=== PATIENT | female | born 1985 | race Caucasian/White ===

== ENCOUNTER 2017-11-03 09:09 | Emergency (ER) | payer OTHER ==
[2017-11-03 09:18] VITALS: BMI 29.8
--- NOTE | 2017-11-03 09:48 | PDOC ---
Attending Attestation - Resident Resident Name: JessicaAldo - ED Attending Attestation I have performed the following: I have examined & evaluated the patient, The case was reviewed & discussed with the resident, I agree w/resident's findings & plan, Exceptions are as noted - HPI HPI: 11/03/17 09:46 32y F presents with n/v for the past 2 days, nbnb. unable to tolerate anything by mouth. denies f/c, diarrhea, urinary sypmtoms. pt with history of iud placement. +upper abdominal pain only in hte process of vomiting. no radaition to flank, back, lower abd no abd pain currently no recent travel, fever/chills pain not associated with food on exam she is well appearing in no distress abd is soft nontender - Physicial Exam PE: 11/03/17 12:03 see above - Medical Decision Making 11/03/17 12:02 pt feeling improved labs reviewed and is neg pt able to tolerate oral intake will dc with zofran return precautions were discussed pmd fu, and GI fu if not better Return precautions were discussed I discussed the physical exam findings, ancillary test results and final diagnoses with the patient. I answered all of the patient's questions. The patient was satisfied with the care received and felt comfortable with the discharge plan and treatment plan. The patient will call their primary care physician within 24 hours to arrange follow-up and will return to the Emergency Department with any new, persistent or worsening symptoms.
[2017-11-03] MEDS ORDERED: ONDANSETRON 4 MG/2 ML VIAL IVPUSH ONE (09:52)
--- NOTE | 2017-11-03 09:52 | PDOC ---
History of Present Illness - General Chief Complaint: Pain Stated Complaint: ABD PAIN, NAUSEA Time Seen by Provider: 11/03/17 09:21 - History of Present Illness Initial Comments: 11/03/17 09:39 Pt is a 32 y/o who presents to ED with nausea and vomiting since Sun. Pt states she has not been able to keep anything down; each time she eats or drinks she becomes nauseous and vomits. She vomited 4 times Sun and 3 times yest. Vomiting is nonbloody, nonbilious and is associated with upper abdominal pain only present while vomiting. Pt denies headache, fever, chills, cp, sob, urinary frequency/urgency, diarrhea, travel, unusual food consumption. Pt has IUD placed 2 years ago. Past History - Past Medical History Allergies/Adverse Reactions: Allergies Allergy/AdvReac Type Severity Reaction Status Date / Time aspirin Allergy Intermediate Swelling Verified 11/03/17 09:18 Home Medications: Ambulatory Orders NK [No Known Home Medication] 11/03/17 Anemia: Yes Asthma: No Cancer: No Cardiac Disorders: No COPD: No Diabetes: No HTN: No Seizures: No Thyroid Disease: No - Surgical History Abdominal Surgery: No - Reproductive History (#): 3 Para: 3 Spontaneous : 0 - Immunization History Immunization Up to Date: Yes - Suicide/Smoking/Psychosocial Hx Smoking Status: No Smoking History: Never smoked Number of Cigarettes Smoked Daily: 0 Information on smoking cessation initiated: No Hx Alcohol Use: No Drug/Substance Use Hx: No Substance Use Type: None Hx Substance Use Treatment: No Review of Systems - Review of Systems Able to Perform ROS?: Yes Is the patient limited Gabonese proficient: No Constitutional: Yes: Symptoms Reported. No: Chills, Diaphoresis, Fever HEENTM: Yes: Symptoms Reported. No: Tearing, Ear Pain, Ear Discharge, Nose Pain , Hearing Loss, Throat Pain, Throat Swelling, Difficulty Swallowing Respiratory: Yes: Symptoms reported. No: Cough, Shortness of Breath, Stridor, Wheezing Cardiac (ROS): Yes: Symptoms Reported. No: Chest Pain, Palpitations, Chest Tightness ABD/GI: Yes: Symptoms Reported, Nausea, Vomiting, Abdominal cramping (upper abdominal pain only while vomiting). No: Diarrhea, Poor Appetite : Yes: Symptoms Reported. No: Burning, Dysuria, Discharge Neurological: Yes: Symptoms reported. No: Headache, Paresthesia, Tingling *Physical Exam - Vital Signs Last Vital Signs Temp Pulse Resp BP Pulse Ox 98.5 F 71 18 110/66 100 11/03/17 09:15 11/03/17 09:15 11/03/17 09:15 11/03/17 09:15 11/03/17 09:15 - Physical Exam General Appearance: Yes: Nourished, Appropriately Dressed, Apparent Distress HEENT: positive: EOMI, WARREN, Normal ENT Inspection (symmetrical palatal elevation). negative: Nasal Congestion, Rhinorrhea Neck: positive: Supple. negative: Tender Respiratory/Chest: positive: Lungs Clear, Normal Breath Sounds. negative: Chest Tender, Respiratory Distress, Accessory Muscle Use Cardiovascular: positive: Regular Rhythm, Regular Rate, S1, S2 Vascular Pulses: Dorsalis-Pedis (R): 2+, Doralis-Pedis (L): 2+ Gastrointestinal/Abdominal: positive: Normal Bowel Sounds, Flat, Soft. negative : Tender Musculoskeletal: negative: CVA Tenderness Extremity: positive: Normal Inspection. negative: Tender, Pedal Edema, Swelling , Calf Tenderness ED Treatment Course - LABORATORY CBC & Chemistry Diagram: 11/03/17 10:10 11/03/17 10:10 Medical Decision Making - Medical Decision Making 11/03/17 10:20 Pt is a 32F who presents to ED with nausea and vomiting for 2 days. unlikely as pt has IUD. Plan -cbc -chem -UA -U preg -lipase -zofran 11/03/17 10:46 Labs unremarkable U hcg neg 11/03/17 11:52 Pt stable for D/C *DC/Admit/Observation/Transfer Diagnosis at time of Disposition: Gastroenteritis - Discharge Dispostion Disposition: HOME Condition at time of disposition: Stable Admit: No - Referrals - Patient Instructions Printed Discharge Instructions: DI for Nausea -- Adult Additional Instructions: Please take all of your prescription medications as directed. Please follow up with your primary care doctor within 1 week. If you develop new symptoms or if your symptoms get worse, please return to the emergency department. - Post Discharge Activity
[2017-11-03] MEDS ORDERED: ONDANSETRON 4 MG/2 ML VIAL ONE (10:17)
[2017-11-03 10:41] LABS: BASO % 0.7 % (0-2.0); EOS % 5.2 % (0-4.5); HEMOGLOBIN 13.9 GM/dL (10.7-15.3); LYMPH % 39.3 % (8-40); MCH 28.5 pg (25.7-33.7); MCHC 32.3 g/dl (32.0-36.0); MEAN CELL VOLUME 88.3 fl (80-96); MEAN PLT VOLUME 9.7 fl (7.5-11.1); MONO % 7.9 % (3.8-10.2); NEUT % 46.9 % (42.8-82.8); PLATELET COUNT 245 K/MM3 (134-434); RBC 4.87 M/mm3 (3.60-5.2); RDW 15.2 % (11.6-15.6); WHITE BLOOD COUNT 7.3 K/mm3 (4.0-10.0)
[2017-11-03 10:51] LABS: ALBUMIN 3.6 g/dl (3.4-5.0); ALK PHOS 106 U/L (45-117); ANION GAP 4 (8-16); BILIRUBIN,TOTAL 0.5 mg/dL (0.2-1.0); BLOOD UREA NITROGEN 14 mg/dL (7-18); CALCIUM 8.5 mg/dL (8.5-10.1); CHLORIDE 105 mmol/L (98-107); CO2 28 mmol/L (21-32); CREATININE 0.6 mg/dL (0.55-1.02); GLUCOSE,RANDOM 85 mg/dL (74-106); SGPT/ALT 18 U/L (12-78); SODIUM 137 mmol/L (136-145); TOT PROT 8.1 g/dl (6.4-8.2)
[2017-11-03 10:53] LABS: SGOT/AST 20 U/L (15-37)
[2017-11-03 12:14] VITALS: BP 128/71; PULSE 78; TEMP 98.4
== END 2017-11-03 12:13 | disposition home or self-care (01) ==
LOC: JER 09:09
PROC: 3E033GC Introduction of Other Therapeutic Substance into Peripheral Vein, Percutaneous Approach (ICD-10-PCS; principal; 2017-11-03)
DX: K52.9 Noninfective gastroenteritis and colitis, unspecified (principal)
CPT/HCPCS: 36415; 80053; 83690; 84703; 85025; 96374; 99283-25

== ENCOUNTER 2018-05-30 12:25 | Emergency (ER) | payer OTHER ==
[2018-05-30 12:32] VITALS: BP 128/71; PULSE 87; TEMP 98.7; BMI 28.2
--- NOTE | 2018-05-30 13:14 | PDOC ---
History of Present Illness - General Chief Complaint: Pain Stated Complaint: Vomiting/ABD PAIN Time Seen by Provider: 05/30/18 12:59 - History of Present Illness Initial Comments: Kira Marquez is a 32yo woman with a history of frequent heartburn who presents with 4 days of nausea, vomiting, and epigastric pain. She states that she has been unable to keep any food down over the past several days, though she has been trying to stay hydrated and has been able to drink a normal amount of water. She does report that she has frequent heartburn and has had episodes of nausea previously for which she has been treated with zofran. She uses pepto bismol at home on occasion with some improvement in her symptoms. Ms Marquez reports that she has never seen a primary physician for heartburn or nausea previously. Over the past few days, Ms Marquez denies any fever, chills, chest pain, SOB, diarrhea or change in bowel habits, recent travel, or sick contacts. 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 She states that she presented to the ED today because she was told that she needed to be evaluated before returning to work. Past History - Past Medical History Allergies/Adverse Reactions: Allergies Allergy/AdvReac Type Severity Reaction Status Date / Time aspirin Allergy Intermediate Swelling Verified 05/30/18 12:32 Home Medications: Ambulatory Orders Famotidine 20 mg PO DAILY #14 tablet 05/30/18 Ondansetron [Zofran Odt -] 4 mg GT QID PRN #12 tab.rapdis 05/30/18 Anemia: Yes Asthma: No Cancer: No Cardiac Disorders: No COPD: No Diabetes: No HTN: No Seizures: No Thyroid Disease: No - Surgical History Abdominal Surgery: No - Reproductive History (#): 3 Para: 3 Spontaneous : 0 - Immunization History Immunization Up to Date: Yes - Suicide/Smoking/Psychosocial Hx Smoking Status: No Smoking History: Never smoked Number of Cigarettes Smoked Daily: 0 Hx Alcohol Use: No Drug/Substance Use Hx: No Substance Use Type: None Hx Substance Use Treatment: No Review of Systems - Review of Systems Comments:: General: No fevers, no chills, no weight or appetite change, no malaise HEENT: No changes in vision, no changes in hearing, no congestion, no sore throat CV: No chest pain, no palpitations, no LE edema Pulm: No SOB, no cough, no wheezing GI: See HPI. No change in bowel habits, no melena : No frequency, no urgency, no dysuria Musc: No back pain, no joint swelling, no recent injury Skin: No rash, no lesions, no erythema Endo: No excessive thirst, no heat/cold intolerance Heme: No unusual bruising or bleeding, no swollen glands Neuro: No syncope, no numbness/tingling, no focal weakness Vasc: No claudication Psych: No recent change in mood, no SI or HI *Physical Exam - Vital Signs Last Vital Signs Temp Pulse Resp BP Pulse Ox 98.7 F 87 18 128/71 99 05/30/18 12:30 05/30/18 12:30 05/30/18 12:30 05/30/18 12:30 05/30/18 12:30 - Physical Exam Comments: General: Comfortable, no acute distress HEENT: PERRL, EOMI, MMM, voice normal, normal neck ROM, no LAD Cards: RRR, no murmur appreciated Pulm: Comfortable on room air, clear to auscultation bilaterally Abd: Soft, nondistended. Mild epigastric discomfort with deep palpation but otherwise nontender. : No CVA tenderness Ext: Atraumatic. No LE edema. ROM intact. Strength 5/5 and equal bilaterally Vasc: Extremities WWP. Palpable radial and pedal pulses bilaterally Neuro: A&Ox3, CN grossly intact, normal speech, motor/sensory grossly intact and symmetric Psych: Mood appropriate to situation ED Treatment Course - LABORATORY CBC & Chemistry Diagram: 05/30/18 13:52 05/30/18 13:52 Medical Decision Making - Medical Decision Making 05/30/18 13:56 Kira Marquez is a 32yo woman with a history of heartburn who presents with 4 days of nausea, vomiting, and epigastric pain. - She reports undiagnosed frequent heartburn. 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 Most likely, her symptoms represent an infectious process - Given epigastric pain and nausea, will rule out ACS. EKG ordered. Low suspicion given patient's lack of comorbidities, and no chest pain, SOB, diaphoresis - r/o as a cause of nausea/vomiting. Urine , UA test ordered - Has had multiple episodes of vomiting previously. May be due to pancreatitis or gallbladder pathology. CBC, CMP, lipase ordered. 05/30/18 14:24 - EKG completed, NSR - UA and urine test negative - CBC w/o concerning abnormalities. CMP pending 05/30/18 15:21 - CMP unconcerning. No LFT elevations. - Feels improved after fluid bolus, famotidine, zofran - Will discharge home. Discussed that she will need to follow up with primary care. Ms Marquez stated understanding and agreement. Discussed with Dr Sepulveda *DC/Admit/Observation/Transfer Diagnosis at time of Disposition: Epigastric pain Nausea & vomiting Qualifiers: Vomiting type: unspecified Vomiting Intractability: non-intractable Qualified Code(s): R11.2 - Nausea with vomiting, unspecified - Discharge Dispostion Disposition: HOME Condition at time of disposition: Good Decision to Admit order: No - Prescriptions Prescriptions: Famotidine 20 mg PO DAILY #14 tablet Ondansetron [Zofran Odt -] 4 mg GT QID PRN #12 tab.rapdis PRN Reason: Nausea And/Or Vomiting - Referrals Referrals: Xavier Pugh MD [Staff Physician] - - Patient Instructions Printed Discharge Instructions: DI for Heartburn, DI for Nausea -- Adult, Nausea and Vomiting-Adult Additional Instructions: Discharge Instructions: - You were seen in the ED for nausea, vomiting and upper abdominal pain - You had blood tests, urine tests, and an EKG to check your heart. All of these tests were normal. - Because you have frequent heartburn, you have been prescribed famotidine ( Pepcid) that you should take daily. You have also been prescribed some anti- nausea tablets (Zofran) that you can take every 4-6 hours as needed for nausea and vomiting - Recommend a bland diet until your symptoms improve - Ensure that you are drinking enough fluids. Water, juice, and sports drinks are all good options even if you are not able to eat much - You have been referred to a workgroup leader (GI doctor). Please make an appointment for follow up within the next 1-2 weeks. - Please seek medical care if you have persistent vomiting and cannot take any food or liquids, if you develop fever to 101F or shaking chills, or start to have severe abdominal pain. If your symptoms do not resolve within the next few days, you should see your primary physician. - Post Discharge Activity Forms/Work/School Notes: Back to Work
[2018-05-30] MEDS ORDERED: SODIUM CHLORIDE 0.9% 500 ML INFUS.BAG IV ONE (13:32)
[2018-05-30] MEDS ORDERED: ONDANSETRON 4 MG/2 ML VIAL IVPUSH ONE (13:32)
[2018-05-30] MEDS ORDERED: FAMOTIDINE 20 MG/50 ML IVPB 20 MG/50 ML MG IVPB ONE ×2 (13:32→13:40)
--- NOTE | 2018-05-30 13:36 | PDOC ---
Attending Attestation - Resident Resident Name: StanisalwMaría Elena - ED Attending Attestation I have performed the following: I have examined & evaluated the patient, The case was reviewed & discussed with the resident, I agree w/resident's findings & plan, Exceptions are as noted - HPI HPI: 32 yo F no significant PMH presents with 4 day history of epigastric pain, N/V. She states she has had difficulty keeping water down at times. 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 She has had stomach problems in the past, but usually accompanied by diffuse abdominal cramping, not pinpoint tenderness in the epigastric area. No f/c, no diarrhea. - Physicial Exam PE: GENERAL: Awake, alert, and fully oriented, in no acute distress HEAD: No signs of trauma EYES: PERRLA, EOMI, sclera anicteric, conjunctiva clear ENT: Auricles normal inspection, hearing grossly normal, nares patent, oropharynx clear without exudates. Dry mucosa NECK: Normal ROM, supple, no lymphadenopathy, JVD, or masses LUNGS: Breath sounds equal, clear to auscultation bilaterally. No wheezes, and no crackles HEART: Regular rate and rhythm, normal S1 and S2, no murmurs, rubs or gallops ABDOMEN: Soft, +minimal epigastric tendenress, normoactive bowel sounds. No guarding, no rebound. No masses EXTREMITIES: Normal range of motion, no edema. No clubbing or cyanosis. No cords, erythema, or tenderness NEUROLOGICAL: Cranial nerves II through XII grossly intact. Normal speech, normal gait SKIN: Warm, Dry, normal turgor, no rashes or lesions noted. - Medical Decision Making Pt with epigastric pain, N/V for past 4 days. Minimal tenderness on exam. Will obtain labs to check LFTs, UA, and lipase.
[2018-05-30] MEDS ORDERED: ONDANSETRON 4 MG/2 ML VIAL ONE (13:40)
[2018-05-30 13:49] LABS: HCG,QUALITATIVE URINE NEGATIVE
[2018-05-30 13:53] LABS: URINE APPEARANCE SLCLOUDY; URINE BILIRUBIN NEGATIVE (<2.0 mg/dL); URINE COLOR YELLOW; URINE GLUCOSE (UA) NEGATIVE (NEGATIVE); URINE KETONE NEGATIVE (NEGATIVE); URINE LEUK ESTERASE NEGATIVE (NEGATIVE); URINE NITRITE NEGATIVE (NEGATIVE); URINE PROTEIN NEGATIVE (NEGATIVE); URINE UROBILINOGEN NEGATIVE mg/dL (0.2-1.0)
[2018-05-30 14:00] LABS: HEMATOCRIT 40.4 % (32.4-45.2); HEMOGLOBIN 13.6 GM/dL (10.7-15.3); MCH 29.4 pg (25.7-33.7); MCHC 33.6 g/dl (32.0-36.0); MEAN CELL VOLUME 87.5 fl (80-96); MEAN PLT VOLUME 9.3 fl (7.5-11.1); RBC 4.62 M/mm3 (3.60-5.2); RDW 15.7 % (11.6-15.6); WHITE BLOOD COUNT 6.4 K/mm3 (4.0-10.0)
[2018-05-30 14:17] LABS: PLATELET COUNT 226 K/MM3 (134-434)
[2018-05-30 14:26] LABS: ALBUMIN 3.6 g/dl (3.4-5.0); ANION GAP 6 (8-16); BILIRUBIN,TOTAL 0.5 mg/dL (0.2-1.0); BLOOD UREA NITROGEN 11 mg/dL (7-18); CALCIUM 9.4 mg/dL (8.5-10.1); CHLORIDE 108 mmol/L (98-107); CO2 30 mmol/L (21-32); CREATININE 0.9 mg/dL (0.55-1.02); GLUCOSE,RANDOM 72 mg/dL (74-106); LIPASE 112 U/L (73-393); POTASSIUM 4.2 mmol/L (3.5-5.1); SGOT/AST 13 U/L (15-37); SGPT/ALT 20 U/L (12-78); SODIUM 144 mmol/L (136-145)
[2018-05-30 14:27] LABS: ALK PHOS 110 U/L (45-117)
--- NOTE | 2018-05-31 11:49 | EKG ---
Test Reason : Blood Pressure : / mmHG Vent. Rate : 077 BPM Atrial Rate : 077 BPM P-R Int : 158 ms QRS Dur : 080 ms QT Int : 368 ms P-R-T Axes : 039 050 017 degrees QTc Int : 416 ms NORMAL SINUS RHYTHM NORMAL ECG WHEN COMPARED WITH ECG OF 17-DEC-2015 16:53, NO SIGNIFICANT CHANGE WAS FOUND Confirmed by STEPHANIE MITCHELL MD ([id number]) on 05/31/2018 11:49:11 AM Referred By: Confirmed By:STEPHANIE MITCHELL MD
== END 2018-05-30 15:22 | disposition home or self-care (01) ==
LOC: JER 12:25
PROC: 3E033GC Introduction of Other Therapeutic Substance into Peripheral Vein, Percutaneous Approach (ICD-10-PCS; principal; 2018-05-30)
PROC: 3E0337Z Introduction of Electrolytic and Water Balance Substance into Peripheral Vein, Percutaneous Approach (ICD-10-PCS; 2018-05-30)
DX: R10.13 Epigastric pain (principal); R11.2 Nausea with vomiting, unspecified; R12 Heartburn
CPT/HCPCS: 36415; 80053; 81003; 83690; 84703; 85027; 93005; 93010; 99283-25

== ENCOUNTER 2018-07-14 09:16 | Emergency (ER) | payer OTHER ==
[2018-07-14 09:20] VITALS: BP 111/59; PULSE 70; TEMP 98.7; BMI 29.0
[2018-07-14] MEDS ORDERED: ALBUTEROL SO4 2.5/IPRATROPIUM 0.5 INH SOL 3 ML VIAL.NEB. NEB ONE ×2 (09:52)
[2018-07-14] MEDS ORDERED: CYCLOBENZAPRINE HCL 5 MG TABLET PO STA (10:05)
--- NOTE | 2018-07-14 10:06 | PDOC ---
History of Present Illness - General Chief Complaint: Cold Symptoms Stated Complaint: COLD SYMPTOMS Time Seen by Provider: 07/14/18 09:49 History Source: Patient Exam Limitations: No Limitations - History of Present Illness Initial Comments: 07/14/18 10:02 c/o 2 days sore throat and cough no pmhx non smoker, states fever last night. Timing/Duration: reports: getting worse Severity: reports: mild Episode Description: cough sore throat hoarse voice Past History - Past Medical History Allergies/Adverse Reactions: Allergies Allergy/AdvReac Type Severity Reaction Status Date / Time aspirin Allergy Intermediate Swelling Verified 07/14/18 09:20 Home Medications: Ambulatory Orders Albuterol Sulfate Inhaler - [Ventolin Hfa Inhaler -] 1 - 2 inh PO QID #1 inhaler 07/14/18 Anemia: Yes Asthma: No Cancer: No Cardiac Disorders: No COPD: No Diabetes: No HTN: No Seizures: No Thyroid Disease: No - Surgical History Abdominal Surgery: No - Reproductive History (#): 3 Para: 3 Spontaneous : 0 - Immunization History Immunization Up to Date: Yes - Suicide/Smoking/Psychosocial Hx Smoking Status: No Smoking History: Never smoked Number of Cigarettes Smoked Daily: 0 Hx Alcohol Use: No Drug/Substance Use Hx: No Substance Use Type: None Hx Substance Use Treatment: No Respiratory Specific PMHX - Complaint Specific PMHX Angina: No Bronchitis: No Pneumonia: No Pulmonary Embolus: No TB (Tuberculosis): No Review of Systems - Review of Systems Able to Perform ROS?: Yes Is the patient limited Iraqi proficient: No Constitutional: Yes: Symptoms Reported HEENTM: Yes: Symptoms Reported Respiratory: Yes: Symptoms reported, Cough *Physical Exam - Vital Signs Last Vital Signs Temp Pulse Resp BP Pulse Ox 98.7 F 70 18 111/59 98 07/14/18 09:18 07/14/18 09:18 07/14/18 09:18 07/14/18 09:18 07/14/18 09:18 - Physical Exam General Appearance: Yes: Nourished, Appropriately Dressed HEENT: positive: EOMI, WARREN. negative: Pharyngeal Erythema, Tonsillar Exudate, Tonsillar Erythema Neck: positive: Supple Respiratory/Chest: positive: Normal Breath Sounds, Rhonchi ED Treatment Course - Medications Given in the ED: ED Medications Discontinued Medications Generic Name Dose Route Start Last Admin Trade Name Freq PRN Reason Stop Dose Admin Albuterol/Ipratropium 1 amp 07/14/18 09:52 07/14/18 09:58 Duoneb - NEB 07/14/18 09:53 1 amp ONCE ONE Administration Medical Decision Making - Medical Decision Making 07/14/18 10:03 cc: sore throat hoarse voice lungs with mild exp wheezing will give duoneb check for strep pt speaking clear full sentences non toxic *DC/Admit/Observation/Transfer Diagnosis at time of Disposition: Bronchitis - Discharge Dispostion Disposition: HOME Condition at time of disposition: Good - Prescriptions Prescriptions: Albuterol Sulfate Inhaler - [Ventolin Hfa Inhaler -] 1 - 2 inh PO QID #1 inhaler - Referrals - Patient Instructions Additional Instructions: drink pleanty of water to stay hydrated use the inhaler as directed increase your vitamin c intake over the counter TAMEKA C supplements can help take honey on a teaspoon three times a day for cough follow with ENT or your primary care if any worsening symptoms - Post Discharge Activity
[2018-07-14] MEDS ORDERED: CYCLOBENZAPRINE HCL 10 MG TABLET (FP) ONE (10:10)
== END 2018-07-14 10:44 | disposition home or self-care (01) ==
LOC: JERFT 09:16
PROC: 3E0F7GC Introduction of Other Therapeutic Substance into Respiratory Tract, Via Natural or Artificial Opening (ICD-10-PCS; principal; 2018-07-14)
DX: J40 Bronchitis, not specified as acute or chronic (principal)
CPT/HCPCS: 87070; 87430; 94640; 99281-25; J7620

== ENCOUNTER 2018-08-22 13:15 | Emergency (ER) | payer OTHER ==
[2018-08-22 13:20] VITALS: BP 116/62; PULSE 82; TEMP 98.3; BMI 29.0
== END 2018-08-22 14:26 | disposition left against medical advice (07) ==
LOC: JERFT 13:15
DX: Z53.21 Procedure and treatment not carried out due to patient leaving prior to being seen by health care provider (principal)
CPT/HCPCS: 99281-25

== ENCOUNTER 2018-12-04 11:18 | Emergency (ER) | payer OTHER ==
[2018-12-04 11:22] VITALS: BP 112/73; PULSE 66; TEMP 98.2; BMI 29.8
--- NOTE | 2018-12-04 12:03 | PDOC ---
History of Present Illness - General Chief Complaint: Back Pain Stated Complaint: BACK PAIN Time Seen by Provider: 12/04/18 11:39 History Source: Patient Exam Limitations: No Limitations - History of Present Illness Initial Comments: 12/04/18 12:03 Patient came with complaints of back pain that radiated down to suprapubic area for the past 3 days. States his had some brownish discharge and pain is progressively increasing. States is intermittent pain but when it returns is progressively worsened. Denies fever, denies any history of pelvic disease including ovarian cyst fibroids or abnormal menses. States has IUD but changes yearly due to what she calls concerns about it being ineffective Past History - Travel Traveled outside of the country in the last 30 days: No Close contact w/someone who was outside of country & ill: No - Past Medical History Allergies/Adverse Reactions: Allergies Allergy/AdvReac Type Severity Reaction Status Date / Time aspirin Allergy Intermediate Swelling Verified 12/04/18 11:22 Home Medications: Ambulatory Orders Albuterol Sulfate Inhaler - [Ventolin Hfa Inhaler -] 1 - 2 inh PO QID #1 inhaler 07/14/18 metroNIDAZOLE 0.75% GEL [Metrogel 0.75% Gel -] 1 applic TP DAILY 5 Days #1 tube 12/04/18 Anemia: Yes Asthma: No Cancer: No Cardiac Disorders: No COPD: No Diabetes: No HTN: No Seizures: No Thyroid Disease: No - Surgical History Abdominal Surgery: No - Reproductive History (#): 3 Para: 3 Spontaneous : 0 - Immunization History Immunization Up to Date: Yes - Suicide/Smoking/Psychosocial Hx Smoking Status: No Smoking History: Never smoked Number of Cigarettes Smoked Daily: 0 Hx Alcohol Use: No Drug/Substance Use Hx: No Substance Use Type: None Hx Substance Use Treatment: No Review of Systems - Review of Systems Able to Perform ROS?: Yes Is the patient limited Croatian proficient: Yes Constitutional: Yes: Symptoms Reported, See HPI, Malaise. No: Chills, Fever HEENTM: Yes: See HPI. No: Symptoms Reported Respiratory: Yes: See HPI. No: Symptoms reported, Cough ABD/GI: Yes: Symptoms Reported, See HPI, Abdominal cramping : Yes: Symptoms Reported, See HPI, Discharge. No: Burning, Dysuria Musculoskeletal: No: Symptoms Reported Integumentary: No: Symptoms Reported All Other Systems: Reviewed and Negative *Physical Exam - Vital Signs Last Vital Signs Temp Pulse Resp BP Pulse Ox 98.2 F 66 18 112/73 99 12/04/18 11:20 12/04/18 11:20 12/04/18 11:20 12/04/18 11:20 12/04/18 11:20 - Physical Exam General Appearance: Yes: Nourished, Appropriately Dressed, Apparent Distress, Mild Distress HEENT: positive: EOMI, WARREN, Normal ENT Inspection, Normal Voice, TMs Normal, Pharynx Normal Neck: positive: Supple. negative: Tender Respiratory/Chest: positive: Lungs Clear, Normal Breath Sounds Female Pelvic Exam: positive: normal external exam, cervical os closed (patient morbidly obese and difficult to examine), discharge (foul smelling , whitish, scant ), adnexal tenderness (mild right adenexal pain and fullness. ). negative : CMT, lesions Gastrointestinal/Abdominal: positive: Tender, Soft, Tenderness. negative: Distended, Guarding, Rebound Musculoskeletal: positive: Normal Inspection. negative: CVA Tenderness, Decreased Range of Motion, Muscle Spasm, Vertebral Tenderness Extremity: positive: Normal Capillary Refill Integumentary: positive: Dry, Warm, Pale Neurologic: positive: olive grader II-XII NML intact, Fully Oriented, Alert, Normal Mood/ Affect, Normal Response, Motor Strength 5/5 Moderate Sedation - Procedure Monitoring Vital Signs: Procedure Monitoring Vital Signs Temperature 98.2 F 12/04/18 11:20 Pulse Rate 66 12/04/18 11:20 Respiratory Rate 18 12/04/18 11:20 Blood Pressure 112/73 12/04/18 11:20 O2 Sat by Pulse Oximetry (%) 99 12/04/18 11:20 Medical Decision Making - Medical Decision Making 12/04/18 13:08 Ultrasound negative for pathology, IUD is intact or . Will treat patient with MetroGel for presumed bacterial vaginosis and have follow-up with DELIVER DRIVER early this week *DC/Admit/Observation/Transfer Diagnosis at time of Disposition: Vaginal discharge - Discharge Dispostion Disposition: HOME Condition at time of disposition: Stable Decision to Admit order: No - Prescriptions Prescriptions: metroNIDAZOLE 0.75% GEL [Metrogel 0.75% Gel -] 1 applic TP DAILY 5 Days #1 tube - Referrals - Patient Instructions Printed Discharge Instructions: DI for Bacterial Vaginosis Additional Instructions: You have presumed bacterial vaginosis, bacterial type of vaginal infection that is not related to sexually transmitted diseases. Use MetroGel one application nightly for 5 days You may call and leave message for return phone call with lab results. Be sure to be clear with your name, birthdate, and phone number Always use condoms with the partners Followup with HORTICULTURE INSTRUCTOR or PMD in one week for reevaluation and retesting. - Post Discharge Activity Forms/Work/School Notes: Back to Work
[2018-12-04 12:22] LABS: HCG,QUALITATIVE URINE Negative
[2018-12-04 12:30] LABS: URINE APPEARANCE CLEAR; URINE BILIRUBIN NEGATIVE (<2.0 mg/dL); URINE COLOR YELLOW; URINE GLUCOSE (UA) NEGATIVE (NEGATIVE); URINE KETONE NEGATIVE (NEGATIVE); URINE LEUK ESTERASE NEGATIVE (NEGATIVE); URINE NITRITE NEGATIVE (NEGATIVE); URINE PROTEIN NEGATIVE (NEGATIVE); URINE UROBILINOGEN NEGATIVE mg/dL (0.2-1.0)
[2018-12-04 12:45] LABS: EPI CELLS RARE /HPF (FEW); URINE BACTERIA RARE /hpf (NONE SEEN); URINE MUCUS MANY
== END 2018-12-04 13:36 | disposition home or self-care (01) ==
LOC: JERFT 11:18 → JER 11:18 → JERFT 13:36
DX: N76.0 Acute vaginitis (principal); B96.89 Other specified bacterial agents as the cause of diseases classified elsewhere
CPT/HCPCS: 76830-TC; 81003; 81015; 84703; 87070; 87205; 99281-25

== ENCOUNTER 2019-06-28 05:05 | Emergency (ER) | payer OTHER ==
[2019-06-28 05:27] VITALS: TEMP 98.4; BMI 31.6
--- NOTE | 2019-06-28 05:43 | PDOC ---
History of Present Illness - General Chief Complaint: Nausea/Vomiting Stated Complaint: DIZZY History Source: Patient Exam Limitations: No Limitations - History of Present Illness Initial Comments: 06/28/19 06:51 33 yo F with hx of anemia presents to the emergency department with room spinning sensation with associative abdominal pain with N/V. Per the patient, it began suddenly yesterday. Denies trauma. Per the patient, she denies visual disturbance. On physical exam, patient had nystagmus to the left. No tenderness to palpation in the abdomen 06/28/19 07:04 Past History - Past Medical History Allergies/Adverse Reactions: Allergies Allergy/AdvReac Type Severity Reaction Status Date / Time aspirin Allergy Intermediate Swelling Verified 06/28/19 05:24 Home Medications: Ambulatory Orders Albuterol Sulfate Inhaler - [Ventolin Hfa Inhaler -] 1 - 2 inh PO QID #1 inhaler 07/14/18 metroNIDAZOLE 0.75% GEL [Metrogel 0.75% Gel -] 1 applic TP DAILY 5 Days #1 tube 12/04/18 Meclizine HCl [Antivert -] 25 mg PO BID PRN 7 Days #14 tablet 06/28/19 Sulfamethoxazole/Trimethoprim [Bactrim Ds -] 1 tab PO DAILY 5 Days #5 tablet 01/11 Anemia: Yes Asthma: No Cancer: No Cardiac Disorders: No COPD: No Diabetes: No HTN: No Seizures: No Thyroid Disease: No - Surgical History Abdominal Surgery: No - Reproductive History (#): 3 Para: 3 Spontaneous : 0 - Immunization History Immunization Up to Date: Yes - Suicide/Smoking/Psychosocial Hx Smoking Status: No Smoking History: Never smoked Have you smoked in the past 12 months: No Number of Cigarettes Smoked Daily: 0 Information on smoking cessation initiated: No Hx Alcohol Use: No Drug/Substance Use Hx: No Substance Use Type: None Hx Substance Use Treatment: No *Physical Exam - Vital Signs Last Vital Signs Temp Pulse Resp BP Pulse Ox 98.4 F 70 18 115/85 95 06/28/19 05:24 06/28/19 05:24 06/28/19 05:24 06/28/19 05:24 06/28/19 05:24 ED Treatment Course - LABORATORY CBC & Chemistry Diagram: 06/28/19 06:11 06/28/19 06:11 *DC/Admit/Observation/Transfer Diagnosis at time of Disposition: Vertigo, Nystagmus, Nausea & vomiting - Discharge Dispostion Disposition: HOME Condition at time of disposition: Stable - Prescriptions Prescriptions: Meclizine HCl [Antivert -] 25 mg PO BID PRN 7 Days #14 tablet PRN Reason: Vertigo Sulfamethoxazole/Trimethoprim [Bactrim Ds -] 1 tab PO DAILY 5 Days #5 tablet - Referrals Referrals: Malcolm Ramirez MD [Staff Physician] - Balbina Montez [Primary Care Provider] - - Patient Instructions Printed Discharge Instructions: DI for Vertigo, DI for Nausea -- Adult, DI for Vomiting -- Adult Additional Instructions: Today you were evaluated for dizziness, nausea, vomiting, and belly pain. We checked your labs and did not see any abnormal results. The CT scan of your head did not show any concerning findings. However, you still have some dizziness and we noted some abnormal eye movements called nystagmus when we examined you, and you need to follow-up with a Neurologist for further care of your dizziness. Please stay hydrated and do not perform any activities that require good balance or focused vision such as sports or driving if you feel dizzy still. We have included prescriptions for a medicine call meclizine for your dizziness and an antibiotic called Bactrim since you were noted to have some bacteria in your urine that could indicate a urinary tract infection. Please see your primary doctor in the next 3 days to follow-up. If you experience worsening dizziness, uncontrollable nausea or vomiting, vomit blood, have fever, chills, more belly pain, or become unable to walk, please return the emergency room as soon as possible. - Post Discharge Activity Forms/Work/School Notes: Back to Work
[2019-06-28] MEDS ORDERED: SODIUM CHLORIDE 1,000 ML IV STA (06:10)
[2019-06-28] MEDS ORDERED: MAG HYDROX/AL HYDROX/SIMETH 30 ML UNIT-DOSE CUP PO ONE (06:10)
[2019-06-28] MEDS ORDERED: ACETAMINOPHEN 1000 MG/100 ML VIAL (NON FORMULARY) IVPB ONE (06:10)
[2019-06-28] MEDS ORDERED: MECLIZINE HCL 25 MG TABLET (FP) PO ONE (06:10)
[2019-06-28] MEDS ORDERED: ONDANSETRON 4 MG/2 ML VIAL IVPUSH ONE (06:10)
[2019-06-28] MEDS ORDERED: MECLIZINE HCL 25 MG TABLET (FP) ONE (06:16)
[2019-06-28] MEDS ORDERED: ACETAMINOPHEN INJECTION 100 ML IVPB ONE (06:16)
[2019-06-28] MEDS ORDERED: MAG HYDROX/AL HYDROX/SIMETH 30 ML UNIT-DOSE CUP ONE ×2 (06:16→06:17)
[2019-06-28] MEDS ORDERED: ONDANSETRON 4 MG/2 ML VIAL ONE (06:28)
[2019-06-28 06:31] LABS: BASO % 0.8 % (0-2.0); EOS % 3.8 % (0-4.5); HEMATOCRIT 38.3 % (32.4-45.2); HEMOGLOBIN 12.7 GM/dL (10.7-15.3); MCH 29.1 pg (25.7-33.7); MEAN CELL VOLUME 88.2 fl (80-96); MEAN PLT VOLUME 9.7 fl (7.5-11.1); MONO % 7.5 % (3.8-10.2); NEUT % 47.9 % (42.8-82.8); PLATELET COUNT 236 K/MM3 (134-434); RBC 4.35 M/mm3 (3.60-5.2); RDW 15.1 % (11.6-15.6); WHITE BLOOD COUNT 6.7 K/mm3 (4.0-10.0)
--- NOTE | 2019-06-28 06:54 | PDOC ---
Attending Attestation - Resident Resident Name: Migue Sneed - ED Attending Attestation I have performed the following: I have examined & evaluated the patient, The case was reviewed & discussed with the resident, I agree w/resident's findings & plan - HPI HPI: 06/28/19 06:53 see resident hpi - Physicial Exam PE: 06/28/19 06:53 agree with resident exam - Medical Decision Making 06/28/19 21:47 33-year-old female with room spinning dizziness CT scan and reevaluation pending Case signed out to [facility][1] for further evaluation
[2019-06-28 06:57] LABS: ALBUMIN 3.4 g/dl (3.4-5.0); ALK PHOS 106 U/L (45-117); ANION GAP 5 MMOL/L (8-16); BILIRUBIN,TOTAL 0.5 mg/dL (0.2-1); BLOOD UREA NITROGEN 13.7 mg/dL (7-18); CALCIUM 8.9 mg/dL (8.5-10.1); CHLORIDE 107 mmol/L (98-107); CO2 29 mmol/L (21-32); CREATININE 0.8 mg/dL (0.55-1.3); GLUCOSE,RANDOM 85 mg/dL (74-106); POTASSIUM 4.1 mmol/L (3.5-5.1); SGOT/AST 11 U/L (15-37); SGPT/ALT 17 U/L (13-61); SODIUM 141 mmol/L (136-145); TOT PROT 7.1 g/dl (6.4-8.2)
--- NOTE | 2019-06-28 07:18 | PDOC ---
*Physical Exam - Vital Signs Last Vital Signs Temp Pulse Resp BP Pulse Ox 98.4 F 70 18 115/85 95 06/28/19 05:24 06/28/19 05:24 06/28/19 05:24 06/28/19 05:24 06/28/19 05:24 - Physical Exam HEENT: positive: EOMI, WARREN, Normal Voice, Pharynx Normal, Scleral Icterus (L). negative: Scleral Icterus (R) Neck: positive: Normal Thyroid, Supple. negative: Tender, Lymphadenopathy (R), Lymphadenopathy (L) Respiratory/Chest: positive: Lungs Clear, Normal Breath Sounds. negative: Respiratory Distress, Crackles, Rales, Rhonchi Cardiovascular: positive: Regular Rhythm, Regular Rate. negative: Edema, Murmur Gastrointestinal/Abdominal: positive: Normal Bowel Sounds, Flat, Soft. negative : Organomegaly Musculoskeletal: positive: Normal Inspection. negative: CVA Tenderness Extremity: positive: Normal Capillary Refill, Normal Inspection, Normal Range of Motion Integumentary: positive: Normal Color, Dry, Warm Neurologic: positive: Fully Oriented, Alert, Normal Mood/Affect, Normal Response ED Treatment Course - LABORATORY CBC & Chemistry Diagram: 06/28/19 06:11 06/28/19 06:11 - ADDITIONAL ORDERS Additional order review: Laboratory Results 06/28/19 06:11 Sodium 141 Potassium 4.1 Chloride 107 Carbon Dioxide 29 Anion Gap 5 L BUN 13.7 Creatinine 0.8 Est GFR (CKD-EPI)AfAm 113.06 Est GFR (CKD-EPI)NonAf 97.55 Random Glucose 85 Calcium 8.9 Total Bilirubin 0.5 AST 11 L ALT 17 Alkaline Phosphatase 106 Total Protein 7.1 Albumin 3.4 Beta HCG, Quant < 1.0 06/28/19 06:11 RBC 4.35 MCV 88.2 MCHC 33.0 RDW 15.1 MPV 9.7 Neutrophils % 47.9 Lymphocytes % 40.0 Monocytes % 7.5 Eosinophils % 3.8 Basophils % 0.8 - Medications Given in the ED: ED Medications Discontinued Medications Generic Name Dose Route Start Last Admin Trade Name Freq PRN Reason Stop Dose Admin Acetaminophen 1,000 mg 06/28/19 06:10 06/28/19 06:21 Ofirmev Injection - IVPB 06/28/19 06:11 1,000 mg ONCE ONE Administration Al Hydroxide/Mg Hydroxide 30 ml 06/28/19 06:10 06/28/19 06:21 Mylanta Oral Suspension - PO 06/28/19 06:11 30 ml ONCE ONE Administration Sodium Chloride 1,000 mls @ 1,000 mls/hr 06/28/19 06:10 06/28/19 06:13 Normal Saline - IV 06/28/19 07:09 1,000 mls/hr ASDIR STA Administration Meclizine HCl 25 mg 06/28/19 06:10 06/28/19 06:22 Antivert - PO 06/28/19 06:11 25 mg ONCE ONE Administration Ondansetron HCl 4 mg 06/28/19 06:10 06/28/19 06:33 Zofran Injection IVPUSH 06/28/19 06:11 4 mg ONCE ONE Administration Medical Decision Making - Medical Decision Making 06/28/19 07:12 Signed out to me by Dr. Sneed. 33F presenting with room-spinning vertigo, generalized abd pain, nausea, NBNB vomiting x2 starting suddenly yesterday. Denies fever, chest pain, no sick contacts. Has leftward nystagmus on exam. [] labs [] CT head [] re-assess [] UA 06/28/19 09:14 CT Read: Impression. No evidence of acute intracranial hemorrhage, edema, midline shift, mass effect, or skull fracture. There is no CT evidence of acute territorial infarction. 06/28/19 10:29 Patient feeling better but still dizzy, no N/V after last checked. Good to d/c home with meclizine. UTI noted on UA, will give bactrim for 5 days to treat. Neurology f/u given. Note for work given. *DC/Admit/Observation/Transfer Diagnosis at time of Disposition: Vertigo, Nystagmus Nausea & vomiting Qualifiers: Vomiting type: unspecified Vomiting Intractability: non-intractable Qualified Code(s): R11.2 - Nausea with vomiting, unspecified - Discharge Dispostion Disposition: HOME Condition at time of disposition: Stable Decision to Admit order: No - Prescriptions Prescriptions: Meclizine HCl [Antivert -] 25 mg PO BID PRN 7 Days #14 tablet PRN Reason: Vertigo Sulfamethoxazole/Trimethoprim [Bactrim Ds -] 1 tab PO DAILY 5 Days #5 tablet - Referrals Referrals: Balbina Montez [Primary Care Provider] - Malcolm Ramirez MD [Staff Physician] - - Patient Instructions Printed Discharge Instructions: DI for Nausea -- Adult, DI for Vomiting -- Adult, DI for Vertigo Additional Instructions: Today you were evaluated for dizziness, nausea, vomiting, and belly pain. We checked your labs and did not see any abnormal results. The CT scan of your head did not show any concerning findings. However, you still have some dizziness and we noted some abnormal eye movements called nystagmus when we examined you, and you need to follow-up with a Neurologist for further care of your dizziness. Please stay hydrated and do not perform any activities that require good balance or focused vision such as sports or driving if you feel dizzy still. We have included prescriptions for a medicine call meclizine for your dizziness and an antibiotic called Bactrim since you were noted to have some bacteria in your urine that could indicate a urinary tract infection. Please see your primary doctor in the next 3 days to follow-up. If you experience worsening dizziness, uncontrollable nausea or vomiting, vomit blood, have fever, chills, more belly pain, or become unable to walk, please return the emergency room as soon as possible. - Post Discharge Activity Forms/Work/School Notes: Back to Work
[2019-06-28 09:33] LABS: HYALINE CASTS 30 /lpf (0-8); URINE APPEARANCE CLOUDY; URINE BACTERIA 449.2 /hpf (NEGATIVE); URINE BILIRUBIN NEGATIVE (NEGATIVE); URINE COLOR YELLOW; URINE GLUCOSE (UA) NEGATIVE (NEGATIVE); URINE KETONE NEGATIVE (NEGATIVE); URINE LEUK ESTERASE TRACE (NEGATIVE); URINE NITRITE NEGATIVE (NEGATIVE); URINE PROTEIN NEGATIVE (NEGATIVE); URINE RBC 2 /hpf (0-4); URINE UROBILINOGEN 0.2 mg/dL (0.2-1.0); URINE WBC 52 /hpf (0-5)
[2019-06-28 10:27] VITALS: BP 122/78; PULSE 88
== END 2019-06-28 10:59 | disposition home or self-care (01) ==
LOC: JER 05:05
PROC: 3E0337Z Introduction of Electrolytic and Water Balance Substance into Peripheral Vein, Percutaneous Approach (ICD-10-PCS; principal; 2019-06-28)
PROC: 3E033GC Introduction of Other Therapeutic Substance into Peripheral Vein, Percutaneous Approach (ICD-10-PCS; 2019-06-28)
PROC: 3E033NZ Introduction of Analgesics, Hypnotics, Sedatives into Peripheral Vein, Percutaneous Approach (ICD-10-PCS; 2019-06-28)
DX: R42 Dizziness and giddiness (principal); H55.00 Unspecified nystagmus
CPT/HCPCS: 36415; 70450-TC; 80053; 81003; 84702; 85025; 87086; 96361; 96374; 96375; 99284-25; J0131; J7030

== ENCOUNTER 2020-08-01 12:00 | Emergency (ER) | payer OTHER ==
[2020-08-01 12:05] VITALS: BP 109/71; PULSE 77; TEMP 98.6; BMI 34.3
--- NOTE | 2020-08-01 12:08 | PDOC ---
Rapid Medical Evaluation Chief Complaint: Vaginal Bleeding Time Seen by Provider: 08/01/20 12:01 Medical Evaluation: Allergies Allergy/AdvReac Type Severity Reaction Status Date / Time aspirin Allergy Intermediate Swelling Verified 06/28/19 05:24 08/01/20 12:02 Pt , currently 18 weeks comes for evaluation of possible vaginal bleeding. She states that she is also having dysuria, frequency and hesitancy. Exam: deferred to provider Orders: urine, US Pt to proceed to the ER for evaluation Discharge Disposition - Diagnosis Vaginal bleeding - Referrals - Patient Instructions - Post Discharge Activity
--- NOTE | 2020-08-01 12:42 | PDOC ---
History of Present Illness - General Chief Complaint: Vaginal Bleeding Stated Complaint: VAGINAL BLEEDING (PREG) Time Seen by Provider: 08/01/20 12:01 History Source: Patient Exam Limitations: No Limitations - History of Present Illness Initial Comments: 08/01/20 12:40 35-year-old female no sniffing past medical history G5, P4 currently 18 weeks presents to the ED complaining of possible vaginal bleeding versus blood in urine. Patient states that she has had frequency hesitation and dysuria with urination and noticed blood on the toilet paper when she wiped. Patient otherwise has no other complaints and denies vaginal discharge or pain. Pt otherwise denies: fevers, chills, syncope, lightheadedness, dizziness, headaches, neck pain, chest pain, shortness of breath, palpitations, back pain, abdominal pain, nausea, vomiting, diarrhea, constipation. Past History - Medical History Allergies/Adverse Reactions: Allergies Allergy/AdvReac Type Severity Reaction Status Date / Time aspirin Allergy Intermediate Swelling Verified 08/01/20 12:04 Home Medications: Ambulatory Orders Albuterol Sulfate Inhaler - [Ventolin Hfa Inhaler -] 1 - 2 inh PO QID #1 inhaler 07/14/18 metroNIDAZOLE 0.75% GEL [Metrogel 0.75% Gel -] 1 applic TP DAILY 5 Days #1 tube 12/04/18 Meclizine HCl [Antivert -] 25 mg PO BID PRN 7 Days #14 tablet 06/28/19 Sulfamethoxazole/Trimethoprim [Bactrim Ds -] 1 tab PO DAILY 5 Days #5 tablet 06/28/19 Anemia: Yes Asthma: No Cancer: No Cardiac Disorders: No COPD: No Diabetes: No HTN: No Seizures: No Thyroid Disease: No - Surgical History Abdominal Surgery: No - Reproductive History Is Patient Now?: Yes (#): 5 Para: 4 Spontaneous : 0 - Immunization History Immunization Up to Date: Yes - Psycho-Social/Smoking History Smoking Status: No Smoking History: Never smoked Have you smoked in the past 12 months: No Number of Cigarettes Smoked Daily: 0 Information on smoking cessation initiated: No - Substance Abuse Hx (Audit-C & DAST Scrn) How often the patient has a drink containing alcohol: Never Score: In Men: 4 or > Positive; In Women: 3 or > Positive: 0 Screen Result (Pos requires Nsg. Audit-10AR): Negative In the last yr the pt used illegal drug/Rx for NonMed reason: No Score: Yes response is considered Positive: 0 Screen Result (Positive result requires Nsg. DAST-10): Negative *Physical Exam - Vital Signs Last Vital Signs Temp Pulse Resp BP Pulse Ox 98.6 F 77 18 109/71 98 08/01/20 12:02 08/01/20 12:02 08/01/20 12:02 08/01/20 12:02 08/01/20 12:02 - Physical Exam 08/01/20 12:41 Gen: AAOx 3, no acute distress, comfortable, no signs of respiratory distress HENT: atraumatic, normocephalic with no laceration or contusion. Nasal mucosa without erythema. Oropharynx without erythema or exudates. Mucous membranes moist. EYES: PERRL, EOM intact, conjunctiva pink NECK: supple; trachea midline; no JVD, no lymphadenopathy, or thyromegaly CV: RRR no murmurs, gallops, or rubs. CHEST: CTA b/l no wheezing, rales or rhonchi ABD: +BS/ND. no TTP; soft, no rebound, no guarding PELVIC: No external lesions, vaginal vault: - white discharge, no blood, - midline tenderness elicited with manual exam, no CMT or adnexal tenderness; os closed EXTREMITY: no cyanosis or erythema. 2+ dorsalis pedis, posterior tibial, and radial pulse. No pedal edema; no calf swelling or tenderness SKIN: no rash, warm and dry, no diaphoresis HEME: no purpura or ecchymosis NEURO: normal speech, CN II-XII intact, sensation intact, normal gait, no cerebellar deficits MS: 5/5 strength in all extremities, FROM intact in all extremities. ED Treatment Course - LABORATORY CBC & Chemistry Diagram: 08/01/20 12:30 Medical Decision Making - Medical Decision Making 08/01/20 12:41 35-year-old female G5, P4 currently 18 weeks most likely UTI as pelvic exam showed no blood in the vault Vital signs stable Will obtain CBC type and screen UA UC as well as ultrasound Will reassess based on result Labs show WBC 6.7 H&H 13/38.5 Beta-hCG is 3591.5 UA negative for UTI Type and screen clotted in lab will send new Ultrasound shows a 0.9 cm intrauterine discrete fluid structure probably representing a true gestational sac corresponding to an appropriate gestational age of 5 weeks 3 days and less likely a pseudo-gestational sac associate with ectopic no embryonic pole or yolk sac is identified at this time 4 cm ovarian cyst no Doppler evidence of left ovarian torsion no gross adnexal pathology is seen the right ovary cannot be definitively identified possibly due to overlying bowel gas Ultrasound contradicts patient's current status which she stated was 18 weeks and confirms status of only 5 weeks Patient to return to ED in 2 days for repeat ultrasound and beta HCG Patient to follow-up with [facility] without fail as well as to return to ED without fail Patient signed out pending type and screen to provider [place] 08/01/20 15:53 Discharge - Discharge Information Problems reviewed: Yes Clinical Impression/Diagnosis: Vaginal bleeding Condition: Stable Disposition: HOME - Follow up/Referral Referrals: Girma Mcwilliams MD [Primary Care Provider] - - Patient Discharge Instructions - Post Discharge Activity
[2020-08-01 12:50] LABS: BASO % 0.9 % (0-2.0); EOS % 4.9 % (0-4.5); HEMATOCRIT 38.5 % (32.4-45.2); LYMPH % 37.4 % (8-40); MCH 29.6 pg (25.7-33.7); MCHC 33.7 g/dl (32.0-36.0); MEAN CELL VOLUME 87.8 fl (80-96); MEAN PLT VOLUME 9.5 fl (7.5-11.1); MONO % 6.9 % (3.8-10.2); NEUT % 49.9 % (42.8-82.8); PLATELET COUNT 225 K/MM3 (134-434); RBC 4.38 M/mm3 (3.60-5.2); RDW 15.8 % (11.6-15.6); WHITE BLOOD COUNT 6.7 K/mm3 (4.0-10.0)
--- OUTSIDE RECORDS SUMMARY | 2020-08-01 13:09 | XMS ---
:1985 Demographics Address [address] [place] [address] Preferred Language Romanian Marital Status or Bahai Affiliation non-Judaism Race H Ethnic Group or Author Organization [facility] Support Name Relationship Address Phone SE Unavailable Unavailable Unavailable LEVAR CHRISTOPHER PARTNER [address] [place] [address] UNEMPLOYED [place] [address] BARCLAYFRANK Solis OT Unavailable TANJACECILIOO PARTNER [address] [place] [address] Care Team Providers Name Role Phone Jose Santamaria Unavailable [phone] Chucho Erazo Unavailable [phone] Jin, Maliha Unavailable Unavailable Jin, Maliha Unavailable Unavailable Jin, Maliha Unavailable Unavailable Jin, Maliha Unavailable Unavailable Jin, Maliha Unavailable Unavailable Jin, Maliha Unavailable Unavailable Jin, Maliha Unavailable Unavailable Jin, Maliha Unavailable Unavailable Jin, Maliha Unavailable Unavailable Jin, Maliha Unavailable Unavailable FaridehamAlcon garciai Unavailable [phone] Jaye Donna Unavailable [phone] Smooth Petit Unavailable [phone] Jayshree Huang MD Unavailable Unavailable Madyson Huang MD Unavailable Unavailable Madyson Huang MD Unavailable Unavailable Madyson Huang MD Unavailable Unavailable Madyson Huang MD Unavailable Unavailable Madyson Huang MD Unavailable Unavailable Madyson Huang MD Unavailable Unavailable Madyson Huang MD Unavailable Unavailable Madyson Huang MD Unavailable Unavailable Madyson Huang MD Unavailable Unavailable Madyson Huang MD Unavailable Unavailable Madyson Huang MD Unavailable Unavailable Madyson Huang MD Unavailable Unavailable Madyson Huang MD Unavailable Unavailable Madyson Huang MD Unavailable Unavailable MD Juan Unavailable MD Juan Unavailable MD Juan Unavailable MD Juan Unavailable MD Juan Unavailable MD Juan Unavailable MD Juan Unavailable Salazar Unavailable [phone] Salazar Unavailable [phone] Re-disclosure Warning The records that you are about to access may contain information from federally- assisted alcohol or drug abuse programs. If such information is present, then the following federally mandated warning applies: This information has been disclosed to you from records protected by federal confidentiality rules (42 CFR part 2). The federal rules prohibit you from making any further disclosure of this information unless further disclosure is expressly permitted by the written consent of the person to whom it pertains or as otherwise permitted by 42 CFR part 2. A general authorization for the release of medical or other information is NOT sufficient for this purpose. The Federal rules restrict any use of the information to criminally investigate or prosecute any alcohol or drug abuse patient.The records that you are about to access may contain highly sensitive health information, the redisclosure of which is protected by Article 27-F of the [facility] Public Health law. If you continue you may haveaccess to information: Regarding HIV / AIDS; Provided by facilities licensed or operated by the [facility] Office of Mental Health; or Provided by the [facility] Office for People With Developmental Disabilities. If such information is present, then the following [facility] mandated warning applies: This information has been disclosed to you from confidential records which are protected by state law. State law prohibits you from making any further disclosure of this information without the specific written consent of the person to whom it pertains, or as otherwise permitted by law. Any unauthorized further disclosure in violation of state law may result in a fine or fdc sentence or both. A general authorization for the release of medical or other information is NOT sufficient authorization for further disclosure. Allergies and Adverse Reactions Type Description Substance Reaction Status Data Source(s ) Drug allergy Aspirin Aspirin Anaphylaxis Active NEXTGEN ([facility]) Family History Family Member Family Member Family Member Date of Description Data Source(s) Name Gender Status Status Unknown Female Diagnosis 12/05/2014 NEXTGEN ( 12:00:00 AM [facility] EST Center) Encounters Encounter Providers Location Date Indications Data Source(s ) Attender: [facility] 02/01/2020 JR N ([facility] 10:15:00 [facility] AM EDT - Center) 02/01/2020 10:15:00 AM EDT Attender: [facility] 07/06/2019 JR N ([facility] 04:29:00 [facility] PM EDT - Center) 07/06/2019 04:29:00 PM EDT Outpatient Attender: Maliha Montes De Oca 03/17/2019 [facility] eph VelezAdmitter: 08:59:00 Medical Ce nter Maliha AM EDT VelezReferrer: Maliha Jin OutpatientOFFICE/ Attender: [facility] 03/17/2019 NATE ([facility] VISIT, [facility] 08:59:00 [facility] EST AM EDT - Center) 03/17/2019 08:59:00 AM EDT Attender: [facility] 09/01/2018 PAUL EN ([facility] 04:37:00 [facility] PM EST - Center) 09/01/2018 04:37:00 PM EST 09/01/2018 [facility] 12:00:00 Medical Center AM EST Attender: [facility] 12/17/2017 NATE ([facility] Juan [facility] 10:22:00 [facility] AM EST - Center) 12/17/2017 10:22:00 AM EST Attender: [facility] 02/03/2017 JR N ([facility] 06:18:00 [facility] PM EDT - Center) 02/03/2017 06:18:00 PM EDT Attender: [facility] 05/25/2015 NEXTNESSA N ([facility] 12:55:00 [facility] PM EDT - Center) 05/25/2015 12:55:00 PM EDT Attender: [facility] 02/20/2015 JR N ([facility] 11:52:00 [facility] AM EDT - Center) 02/20/2015 11:52:00 AM EDT Attender: [facility] 12/05/2014 NATE ([facility] 02:12:00 [facility] PM EST - Center) 12/05/2014 02:12:00 PM EST Immunizations Vaccine Date Status Description Data Source(s) New in 2011. IIV4 12/17/2017 completed Influenza, injectable, NEXTGEN ([facility] 12:00:00 AM EST quadrivalent, [facility] ical preservative free, 3 Center) yrs or older Source: New Immunization Record Tdap 05/25/2015 12:00:00 AM EDT completed Tdap N EXTGEN ([facility]) Source: New Immunization Record Medications Medication Brand Start Product Dose Route Administrative Pharmacy [facility] Indications Reaction Description Data Name Date Form Instructions Instructions Source(s) Flonase Flutic 01/31/ NASAL active Fluticason e NEXTGEN Allergy asone 2019 propionate (Thania t Relief 50 propio 12:00: 0.05 Xu s mcg/actuati checo 00 AM MG/ACTUAT Me dical on nasal 0.05 EDT Metered Dose [address]) spray,suspe MG/ACT Nasal [place] nsion UAT [Flonase] Metere d Dose Nasal [place] Loratadine lorata 1.00 ORAL active take 1 N EXTGEN 10 MG Oral dine 2018 {tbl} tablet by (Sa int Tablet 10 mg 12:00: oral route [place] mayra loratadine tablet 00 AM every day M edical 10 mg EDT Center) tablet Flonase Flutic 03/17/ NASAL complet Fluticaso ne NEXTGEN Allergy asone 2018 ed propionate (Thania t Relief 50 propio 12:00: 0.05 Xu s mcg/actuati checo 00 AM MG/ACTUAT Me dical on nasal 0.05 EDT Metered Dose [address]) spray,suspe MG/ACT Nasal [place] nsion UAT [Flonase] Metere d Dose Nasal [place] Clotrimazol clotri 09/01/ TOPICA complet appl y by NEXTGEN e 10 MG/ML mazole 2017 L ed topical (Tu nt Topical 1 % 12:00: route 2 [facility] Cream topica 00 AM times every Medi vee clotrimazol l EST day to the nter) e 1 % cream affected and topical surrounding cream areas of skin in the morning and evening Terazol 3 TERCON 05/25/ complet insert 1 NEXTGEN 80 mg AZOLE 2014 ed suppository ( vaginal 12:00: by vaginal [place]ton phs suppository 00 AM route every Medical EDT day at Center) bedtime Insurance Providers Payer name Policy type Policy ID Covered Covered alliance party's Policy P marco / Coverage alliance party ID relationship to [place] Inf ormation type crenshaw [facility] MEDICAID [id number] SP [id number] COMM PLAN [facility] [id number] 01 [id number] HEALTHCARE Problems, Conditions, and Diagnoses Code Display Name Description Problem Type Effective Dates Data Source(s) Z71.9 Counseling, COUNSELING, Diagnosis 03/17/2019 [facility] Xu guerra unspecified UNSPECIFIED 08:59:00 AM EDT [facility] Center Z71.89 Other specified OTHER SPECIFIED Diagnosis 03/17/2019 Thania Ham counseling COUNSELING 08:59:00 AM EDT Medical C enter Z68.38 Body mass index BODY MASS INDEX Diagnosis 03/17/2019 Thania Ham (BMI) 38.0-38.9, (BMI) 38.0-38.9, 08:59:00 AM E [facility] adult ADULT J30.9 Allergic rhinitis, ALLERGIC Diagnosis 03/17/2019 [facility] unspecified RHINITIS, 08:59:00 AM T [facility] UNSPECIFIED Surgeries/Procedures Procedure Description Date Indications Data Source(s) OFFICE/OUTPATIENT 03/17/2019 NEXTGEN (Dane Ham VISIT, EST 12:00:00 AM EDT - Medical Ce nter) 03/17/2019 12:00:00 AM EDT Results ID Date Data Source [id number] 09/01/2018 06:00:00 PM EST [facility] -0500 Name Value Range Interpretation Code Description Data Dena rce(s) Supporting Document(s ) UNK 4.2-5.8 <content [facility] styleCode="Bold" Medical Cente r >Hemoglobin A1C </content>5.8 %<content styleCode="Itali cs"> (4.2-5.8 %)</content> Procedure Social History Code Duration Value Status Description Data Source(s ) Caffeine Use 03/17/2019 completed NEXTGEN (Tu nt Details 12:00:00 AM EDT [facility]) 03/17/2019 Never smoked completed Never smoked NEXTGEN (S aint 12:00:00 AM EDT tobacco tobacco [facility]) Smoking 03/17/2019 Unknown if completed Unknown if ever NEXTGEN ( [facility] 12:00:00 AM EDT ever smoked smoked [facility]) Smoking Unknown if completed Unknown if ever [facility] ever smoked smoked [facility] Cent[facility] r [facility] Vital Signs ID Date Data Source UNK Name Value Range Interpretation Code Description Data Source(s) Oxygen saturation 97 % 97 % NEXTGEN ([facility] in Arterial blood [facility] by Pulse oximetry Center) Body mass index 38.94 kg/m2 Overweight 38.94 kg/m2 NEXTGEN ([facility] (BMI) [Ratio] [facility]piratory rate 18 /min 18 /min [facility] Body temperature 36.83 Demetrice 36.83 Demetrice NEXTGEN ([facility]) Heart rate 79 /min 79 /min [facility] Diastolic blood 73 mm[Hg] 73 mm[Hg] NEXTGEN ( [facility] pressure [facility]) Systolic blood 100 mm[Hg] 100 mm[Hg] NEXTGEN ( aint [facility]) Body weight 106.141 kg 106.141 kg [facility] Body height 165.10 cm 165.10 cm [facility] Patient Treatment Plan of Care Planned Activity Planned Date Details Description Data Source (s) Flonase Allergy Relief 50 02/01/2020 12:00:00 NEXTGEN (Saint mcg/actuation nasal AM [facility] spray,suspension [place]) Flonase Allergy Relief 50 03/17/2019 12:00:00 NEXTGEN (Saint mcg/actuation nasal AM [facility] spray,suspension [place]) Loratadine 10 MG Oral 03/17/2019 12:00:00 NEXTGEN ([facility] Tablet [facility]) Clotrimazole 10 MG/ML 09/01/2018 12:00:00 NEXTGEN ([facility] Topical Cream [facility]) Terazol 3 80 mg vaginal 05/25/2015 12:00:00 NEXTGEN ([facility] suppository [facility])
[2020-08-01 14:49] LABS: URINE APPEARANCE CLOUDY; URINE BILIRUBIN NEGATIVE (NEGATIVE); URINE COLOR YELLOW; URINE GLUCOSE (UA) NEGATIVE (NEGATIVE); URINE KETONE NEGATIVE (NEGATIVE); URINE LEUK ESTERASE NEGATIVE (NEGATIVE); URINE NITRITE NEGATIVE (NEGATIVE); URINE PROTEIN NEGATIVE (NEGATIVE); URINE UROBILINOGEN 0.2 mg/dL (0.2-1.0)
--- NOTE | 2020-08-01 17:02 | PDOC ---
*Physical Exam - Vital Signs Last Vital Signs Temp Pulse Resp BP Pulse Ox 98.6 F 77 18 109/71 98 08/01/20 12:02 08/01/20 12:02 08/01/20 12:02 08/01/20 12:02 08/01/20 12:02 - Physical Exam General Appearance: Yes: Appropriately Dressed. No: Apparent Distress Musculoskeletal: positive: Normal Inspection Extremity: positive: Normal Inspection ED Treatment Course - LABORATORY CBC & Chemistry Diagram: 08/01/20 12:30 - ADDITIONAL ORDERS Additional order review: Laboratory Results 08/01/20 08/01/20 08/01/20 14:18 12:30 12:30 Beta HCG, Quant 3591.5 Urine Color Yellow Urine Appearance Cloudy Urine pH 7.0 Ur Specific [place] 1.019 Urine Protein Negative Urine Glucose (UA) Negative Urine Ketones Negative Urine Blood Negative Urine Nitrite Negative Urine Bilirubin Negative Urine Urobilinogen 0.2 Ur Leukocyte Esterase Negative Blood Type Cancelled Antibody Screen Cancelled 08/01/20 12:30 RBC 4.38 MCV 87.8 MCHC 33.7 RDW 15.8 H MPV 9.5 Neutrophils % 49.9 Lymphocytes % 37.4 Monocytes % 6.9 Eosinophils % 4.9 H Basophils % 0.9 ED Progress Note - Progress Note Progress Note: 08/01/20 17:05 Received patient from CLEOPATRA Zamorano Briefly this is a 35-year-old woman G5, P4 who is currently 5 weeks with vaginal bleeding. Beta-hCG 3500 Transvaginal ultrasound reveals gestational sac with an approximate gestational age of 5 weeks 3 days. No embryonic pole or yolk sac is identified. Pending type and screen for disposition Medical Decision Making - Medical Decision Making 08/01/20 17:24 Laboratory Tests 08/01/20 08/01/20 08/01/20 12:30 12:30 14:18 WBC 6.7 RBC 4.38 Hgb 13.0 Hct 38.5 MCV 87.8 MCH 29.6 MCHC 33.7 RDW 15.8 H Plt Count 225 MPV 9.5 Absolute Neuts (auto) 3.3 Neutrophils % 49.9 Lymphocytes % 37.4 Monocytes % 6.9 Eosinophils % 4.9 H Basophils % 0.9 Nucleated RBC % 0 Beta HCG, Quant 3591.5 Urine Color Yellow Urine Appearance Cloudy Urine pH 7.0 Ur Specific [place] 1.019 Urine Protein Negative Urine Glucose (UA) Negative Urine Ketones Negative Urine Blood Negative Urine Nitrite Negative Urine Bilirubin Negative Urine Urobilinogen 0.2 Ur Leukocyte Esterase Negative Blood Type Antibody Screen 08/01/20 15:17 WBC RBC Hgb Hct MCV MCH MCHC RDW Plt Count MPV Absolute Neuts (auto) Neutrophils % Lymphocytes % Monocytes % Eosinophils % Basophils % Nucleated RBC % Beta HCG, Quant Urine Color Urine Appearance Urine pH Ur Specific [place] Urine Protein Urine Glucose (UA) Urine Ketones Urine Blood Urine Nitrite Urine Bilirubin Urine Urobilinogen Ur Leukocyte Esterase Blood Type A POSITIVE Antibody Screen Negative We will discharge patient home to follow-up with her wrap yarn sorter. I discussed the physical exam findings, ancillary test results and final diagnoses with the patient. I answered all of the patient's questions. The patient was satisfied with the care received and felt comfortable with the discharge plan and treatment plan. The patient will call their primary care physician within 24 hours to arrange follow-up and will return to the Emergency Department with any new, persistent or worsening symptoms. Portions of this note have been documented using voice recognition software. As a result, errors may occur in the circular distributor process. Effort has been made to correct all grammatical and circular distributor error, but some may have been missed which may produce sporadic inaccurate circular distributor or nonsensical phrases. Discharge - Discharge Information Problems reviewed: Yes Clinical Impression/Diagnosis: Vaginal bleeding Condition: Stable Disposition: ELOPED - Admission No - Follow up/Referral Referrals: Girma Mcwilliams MD [Primary Care Provider] - - Patient Discharge Instructions Additional Instructions: Take your vitamins. Keep well-hydrated. Avoid tobacco and alcohol as well as illegal drugs. Make an appointment with your [employer]PERVISOR [employer] for reevaluation. Return to ED in 2 days for repeat labs and ultrasound. Return to the emergency department immediately for severe pain, vaginal bleeding that requires more than 2 pads per hour or for any other symptoms. Thank you very much for choosing us to provide your emergent health care needs. - Post Discharge Activity
== END 2020-08-01 17:45 | disposition left against medical advice (07) ==
LOC: JER 12:00
DX: O26.851 Spotting complicating pregnancy, first trimester (principal)
CPT/HCPCS: 36415; 76801-TC; 81003; 84702; 85025; 86850; 86900; 86901; 87086; 99284-25

== ENCOUNTER 2020-08-06 11:41 | Emergency (ER) | payer OTHER ==
--- NOTE | 2020-08-06 11:43 | PDOC ---
Rapid Medical Evaluation Time Seen by Provider: 08/06/20 11:42 Medical Evaluation: Allergies Allergy/AdvReac Type Severity Reaction Status Date / Time aspirin Allergy Intermediate Swelling Verified 08/01/20 12:04 08/06/20 11:42 35-year-old female no past medical history G5, P4 currently 6 weeks with vaginal bleeding. Sent by ELECTRIC STOP INSTALLER PE: Differed to provider Plan: Labs TVUS Pt to precede to ED for Further eval
[2020-08-06 11:48] VITALS: BMI 34.8
[2020-08-06] MEDS ORDERED: SODIUM CHLORIDE 1,000 ML IV STA (12:10)
[2020-08-06] MEDS ORDERED: ACETAMINOPHEN 1000 MG/100 ML VIAL (NON FORMULARY) IVPB ONE (12:10)
--- OUTSIDE RECORDS SUMMARY | 2020-08-06 12:20 | XMS ---
:1985 Demographics Address [address] [place] [address] Preferred Language Chinese Marital Status or Confucianism Affiliation NO Race [facility] Ethnic Group or Author [facility] Support Name Relationship Address Phone SE, SELF-EMPLOYED Unavailable Unavailable Unavailable SE Unavailable Unavailable Unavailable LEVAR CHRISTOPHER PARTNER [address] [phone] [place] [address] UNEMPLOYED [place] [address] FRANK BARCLAY OT Unavailable CECILIO AGRAWALO PARTNER [address] [place] [address] CECILIO AGRAWALO Other [address] [place] [phone] Care Team Providers Name Role Phone Jayshree Huang MD Unavailable Unavailable Madyson Huang [...] Unavailable Unavailable Madyson Huang MD Unavailable Unavailable Re-disclosure Warning The records that you are [...] is protected by Article 27-F of the [facility] Public Health law. If you continue you may haveaccess to information: Regarding HIV / AIDS; Provided by facilities licensed or operated by the [facility] Office of Mental Health; or Provided by the [facility] Office for People With Developmental Disabilities. If such information is present, then the following [facility] mandated warning applies: This information has [...] law may result in a fine or mcfp sentence or both. A general authorization for the release of medical or other information is NOT sufficient authorization for further disclosure. Family History Family Member Family Member Family Member Date of Description Data Source(s) Name Gender Status Status Unknown Female Diagnosis 12/05/2014 NEXTGEN ([facility] 12:00:00 AM [facility]) Encounters Encounter Providers Location Date Indications Data Source(s ) Attender: [facility] 02/01/2020 [facility] 02/01/2020 10:15:00 AM EDT Attender: [facility] 07/06/2019 [facility] 07/06/2019 04:29:00 PM EDT Medications Medication Brand Start Product Dose Route Administrative Pharmacy [facility] Indications Reaction Description Data Name Date Form Instructions Instructions Source(s) Flonase Flutic 01/31/ NASAL active Fluticason e NEXTGEN Allergy asone 2019 propionate (Thania t Relief 50 propio 12:00: 0.05 Xu s mcg/actuati checo 00 AM MG/ACTUAT Me dical on nasal 0.05 EDT Metered Dose [address]) spray,suspe MG/ACT Nasal [place] nsion UAT [Flonase] Metere d Dose Nasal [place] Flonase Flutic 03/17/ NASAL complet Fluticaso ne NEXTGEN Allergy asone 2019 ed propionate (Thania t Relief 50 propio 12:00: 0.05 Xu s mcg/actuati checo 00 AM MG/ACTUAT Me dical on nasal 0.05 EDT Metered Dose [address]) spray,suspe MG/ACT Nasal [place] nsion UAT [Flonase] Metere d Dose Nasal [place] Insurance Providers Payer name Policy type Policy ID Covered Covered libertarian's Policy P marco / Coverage libertarian ID relationship to Wheat Inf ormation type wheat [employer] [id number] SP [id number] COUNTS INCLUDE 234 BEDS AT [facility] MEDICAID [id number] SP [id number] COMM PLAN [facility] [id number] 01 [id number] HEALTHCARE Patient Treatment Plan of Care Planned Activity Planned Date Details Description Data Source (s) Flonase Allergy Relief 02/01/2020 12:00:00 [facility] ([facility] 50 mcg/actuation nasal AM [facility]) spray,suspension Flonase Allergy Relief 03/17/2019 12:00:00 NEXTGEN ([facility] 50 mcg/actuation nasal AM EDT Medic al Center) spray,suspension
--- NOTE | 2020-08-06 12:24 | PDOC ---
History of Present Illness - General Chief Complaint: Vaginal Bleeding Stated Complaint: VAGINAL BLEEDING 6 WKS Time Seen by Provider: 08/06/20 11:42 History Source: Patient Exam Limitations: No Limitations - History of Present Illness Travel History: No Initial Comments: 08/06/20 12:15 35-year-old female to the emergency room for evaluation of increased vaginal bleeding and cramping. Patient states is currently 6 weeks and was here a few days ago with vaginal bleeding. Patient denies fever, chills, weakness, nausea, or urinary complaints. Timing/Duration: reports: constant Quality: reports: moderate, cramping Abdominal Pain Onset Location: reports: suprapubic Pain Radiation: reports: no radiation Activities at Onset: reports: none Aggravating Factors: improves with: None Alleviating Factors: improves with: None Past History - Travel History Traveled outside of the country in the last 30 days: No Close contact w/someone who was outside of country & ill: No - Medical History Allergies/Adverse Reactions: Allergies Allergy/AdvReac Type Severity Reaction Status Date / Time aspirin Allergy Intermediate Swelling Verified 08/06/20 11:43 Home Medications: Ambulatory Orders Albuterol Sulfate Inhaler - [Ventolin Hfa Inhaler -] 1 - 2 inh PO QID #1 inhaler 07/14/18 metroNIDAZOLE 0.75% GEL [Metrogel 0.75% Gel -] 1 applic TP DAILY 5 Days #1 tube 12/04/18 Meclizine HCl [Antivert -] 25 mg PO BID PRN 7 Days #14 tablet 06/28/19 Sulfamethoxazole/Trimethoprim [Bactrim Ds -] 1 tab PO DAILY 5 Days #5 tablet 06/28/19 Anemia: Yes Asthma: No Cancer: No Cardiac Disorders: No COPD: No Diabetes: No HTN: No Seizures: No Thyroid Disease: No - Surgical History Abdominal Surgery: No - Reproductive History Is Patient Now?: Yes (#): 5 Para: 4 Spontaneous : 0 - Immunization History Immunization Up to Date: Yes - Psycho-Social/Smoking History Patient Lives Alone: No Lives with/in: spouse/SO Smoking Status: No Smoking History: Never smoked Have you smoked in the past 12 months: No Number of Cigarettes Smoked Daily: 0 - Substance Abuse Hx (Audit-C & DAST Scrn) How often the patient has a drink containing alcohol: Never Score: In Men: 4 or > Positive; In Women: 3 or > Positive: 0 Screen Result (Pos requires Nsg. Audit-10AR): Negative In the last yr the pt used illegal drug/Rx for NonMed reason: No Score: Yes response is considered Positive: 0 Screen Result (Positive result requires Nsg. DAST-10): Negative Review of Systems - Review of Systems Able to Perform ROS?: Yes Constitutional: No: Symptoms Reported HEENTM: No: Symptoms Reported Respiratory: No: Symptoms reported Cardiac (ROS): No: Symptoms Reported ABD/GI: Yes: Abdominal cramping : Yes: Discharge Musculoskeletal: No: Symptoms Reported Integumentary: No: Symptoms Reported Neurological: No: Symptoms reported Endocrine: No: Symptoms Reported Hematologic/Lymphatic: No: Symptoms Reported *Physical Exam - Vital Signs Last Vital Signs Temp Pulse Resp BP Pulse Ox 98.7 F 86 18 112/63 100 08/06/20 11:44 08/06/20 11:44 08/06/20 11:44 08/06/20 11:44 08/06/20 11:44 - Physical Exam General Appearance: Yes: Nourished, Appropriately Dressed. No: Apparent Distress HEENT: negative: Pale Conjunctivae Neck: positive: Supple Respiratory/Chest: positive: Lungs Clear, Normal Breath Sounds. negative: Respiratory Distress, Accessory Muscle Use Cardiovascular: positive: Regular Rhythm, Regular Rate. negative: Murmur Female Pelvic Exam: positive: vaginal bleeding (Moderate amount of bright red) Gastrointestinal/Abdominal: positive: Soft, Tenderness (Suprapubic) Extremity: positive: Normal Inspection Integumentary: positive: Normal Color, Warm, Moist Neurologic: positive: Motor Strength 5/5 (Ambulatory) ED Treatment Course - LABORATORY CBC & Chemistry Diagram: 08/06/20 12:35 08/06/20 12:35 Medical Decision Making - Medical Decision Making 08/06/20 13:03 Chief complaint: Patient here with vaginal bleeding. Patient is 6 weeks p regnant. Patient also with suprapubic tenderness on exam Plan: Labs, urine, ultrasound IV fluids and IV Tylenol ordered 08/06/20 15:31 Laboratory Tests 08/06/20 08/06/20 08/06/20 12:35 12:35 12:35 WBC 6.7 Hgb 13.0 Hct 39.4 Neutrophils % 50.3 Sodium 137 Potassium 4.1 BUN 8.9 Creatinine 0.7 Random Glucose 94 Calcium 9.0 Total Bilirubin 1.3 H AST 17 ALT 20 Beta HCG, Quant 5211.4 Urine Blood 3+ H Urine Nitrite Negative Ur Leukocyte Esterase Negative Urine WBC (Auto) 23 Urine RBC (Auto) 20 Urine Casts (Auto) 2 U Epithel Cells (Auto) >36 Urine Bacteria (Auto) 1473 08/06/20 15:36 Ultrasound shows a possible early IUP. There is a fluid collection within the endometrial cavity that has the appearance of a gestational sac. It measures 5 weeks 4 days. There is no yolk sac or pole identified therefore the viability of this is uncertain. Correlation with serial beta subunit hCG levels and follow-up sonographic is recommended 08/06/20 15:36 Laboratory Tests 08/01/20 12:30 Beta HCG, Quant 3591.5 Discharge - Discharge Information Problems reviewed: Yes Clinical Impression/Diagnosis: Threatened Condition: Good Disposition: HOME - Follow up/Referral Referrals: Saida Restrepo [Primary Care Provider] - - Patient Discharge Instructions Patient Printed Discharge Instructions: DI for Threatened Additional Instructions: Please also return here in 2 days for repeat beta-hCG and ultrasound. In the meanwhile please take Tylenol for discomfort. - Post Discharge Activity
[2020-08-06] MEDS ORDERED: ACETAMINOPHEN INJECTION 100 ML IVPB ONE (12:30)
[2020-08-06 13:15] LABS: BASO % 0.8 % (0-2.0); EOS % 4.4 % (0-4.5); HEMATOCRIT 39.4 % (32.4-45.2); LYMPH % 37.1 % (8-40); MCH 28.9 pg (25.7-33.7); MCHC 33.1 g/dl (32.0-36.0); MEAN CELL VOLUME 87.3 fl (80-96); MEAN PLT VOLUME 9.7 fl (7.5-11.1); MONO % 7.4 % (3.8-10.2); NEUT % 50.3 % (42.8-82.8); PLATELET COUNT 216 K/MM3 (134-434); RBC 4.52 M/mm3 (3.60-5.2); WHITE BLOOD COUNT 6.7 K/mm3 (4.0-10.0)
[2020-08-06 13:16] LABS: EPI CELLS >36 /uL (0-25.1); HYALINE CASTS 2 /uL (0-3.1); URINE APPEARANCE CLOUDY; URINE BACTERIA 1473 /uL (0-1359); URINE BILIRUBIN NEGATIVE (NEGATIVE); URINE COLOR YELLOW; URINE GLUCOSE (UA) NEGATIVE (NEGATIVE); URINE KETONE NEGATIVE (NEGATIVE); URINE LEUK ESTERASE NEGATIVE (NEGATIVE); URINE NITRITE NEGATIVE (NEGATIVE); URINE PROTEIN NEGATIVE (NEGATIVE); URINE RBC 20 /uL (0-23.9); URINE UROBILINOGEN 0.2 mg/dL (0.2-1.0); URINE WBC 23 /uL (0-25.8)
[2020-08-06 14:03] LABS: ALBUMIN 3.5 g/dl (3.4-5.0); BILIRUBIN,TOTAL 1.3 mg/dL (0.2-1); BLOOD UREA NITROGEN 8.9 mg/dL (7-18); CREATININE 0.7 mg/dL (0.55-1.3); POTASSIUM 4.1 mmol/L (3.5-5.1); TOT PROT 7.6 g/dl (6.4-8.2)
[2020-08-06 15:49] VITALS: BP 120/72; PULSE 78; TEMP 98.2
== END 2020-08-06 15:45 | disposition home or self-care (01) ==
LOC: JER 11:41
PROC: 3E0333Z Introduction of Anti-inflammatory into Peripheral Vein, Percutaneous Approach (ICD-10-PCS; principal; 2020-08-06)
PROC: 3E0337Z Introduction of Electrolytic and Water Balance Substance into Peripheral Vein, Percutaneous Approach (ICD-10-PCS; 2020-08-06)
DX: O20.0 Threatened abortion (principal); Z3A.01 Less than 8 weeks gestation of pregnancy
CPT/HCPCS: 36415; 76817-TC; 80053; 81003; 84702; 85025; 86850; 86900; 86901; 87086; 99284-25; J0131

== ENCOUNTER 2020-08-08 11:11 | Emergency (ER) | payer OTHER ==
[2020-08-08 11:34] VITALS: BP 137/62; PULSE 86; TEMP 99.1; BMI 35.5
--- OUTSIDE RECORDS SUMMARY | 2020-08-08 11:35 | XMS ---
:1985 Demographics Address [address] [place] [address] CELL Preferred Language Armenian Marital Status or Zoroastrianism Affiliation NO Race [facility] Ethnic Group or Author Organization [facility] Support Name Relationship Address Phone SE, SELF-EMPLOYED Unavailable Unavailable Unavailable SE Unavailable Unavailable Unavailable LEVAR CHRISTOPHER PARTNER [address] [place] [address] UNEMPLOYED [place] [address] BARCLAY, DARIELIANA OT Unavailable [employer]AZ [employer]NER [address] [place] [address] CHAZ AGRAWAL Unavailable [address] [place] [address] Care Team Providers Name Role Phone Jayshree [...] is protected by Article 27-F of the [facility] Public Health law. If you continue you may haveaccess to information: Regarding HIV / AIDS; Provided by facilities licensed or operated by the [facility] Office of Mental Health; or Provided by the [facility] Office for People With Developmental Disabilities. If such information is present, then the following [facility] mandated warning applies: This information has been [...] law may result in a fine or fci sentence or both. A general authorization for the release of medical or other information is NOT sufficient authorization for further disclosure. Family History Family Member Family Member Family Member Date of Description Data Source(s) Name Gender Status Status Unknown Female Diagnosis 12/05/2014 [facility] ([facility] 12:00:00 AM [facility]) Encounters Encounter Providers Location Date Indications Data Source(s ) Attender: [facility] 02/01/2020 [facility] ( [facility] 02/01/2020 10:15:00 AM EDT Attender: [facility] 07/06/2019 [facility]29[facility] 07/06/2019 04:29:00 PM EDT Medications Medication Brand Start Product Dose Route Administrative Pharmacy [facility] Indications Reaction Description Data Name Date Form Instructions Instructions Source(s) Flonase Flutic 01/31/ NASAL active Fluticason e NEXTGEN Allergy asone 2019 propionate (Thania t Relief 50 propio 12:00: 0.05 Xu s mcg/actuati checo 00 AM MG/ACTUAT Me dical on nasal 0.05 EDT [address] Dose [address]) spray,suspe MG/ACT Nasal Spade nsion UAT [Flonase] Metere d Dose Nasal Spade Flonase Flutic 03/17/ NASAL complet Fluticaso ne NEXTGEN Allergy asone 2019 ed propionate ([place] t Relief 50 propio 12:00: 0.05 Xu s mcg/actuati checo 00 AM MG/ACTUAT Me dical on nasal 0.05 EDT Metered Dose [address]) spray,suspe MG/ACT Nasal Spade nsion UAT [Flonase] Metere d Dose Nasal Spade Insurance Providers Payer name Policy type Policy ID Covered Covered constitution party's Policy P marco / Coverage constitution party ID relationship to Wheat Inf ormation type wheat [employer] [id number] SP [id number] 101 [facility] MEDICAID [id number] SP [id number] [facility] [id number] HEALTHCARE Patient Treatment Plan of Care Planned Activity Planned Date Details Description Data Source (s) Flonase Allergy Relief 02/01/2020 12:00:00 [facility] ([facility] 50 mcg[facility]actuation nasal [facility]) spray,suspension Flonase Allergy Relief 03/17/2019 12:00:00 [facility]EXTGEN ([facility] 50 mcg/actuation nasal AM [facility]) spray,suspension
--- NOTE | 2020-08-08 12:49 | PDOC ---
History of Present Illness - General History Source: Patient Exam Limitations: No Limitations - History of Present Illness Initial Comments: 08/08/20 12:47 35-year-old female approximately 6 weeks gestation presents for repeat beta hCG and transvaginal ultrasound. Patient presented to ED August 01, 2020 for blood upon wiping. At that time beta hcg 3591, returned to ED August 06, 2020 for vaginal bleeding, at that time beta hcg 5211.4 and transvaginal ultrasound resulted in possible early IUP at 5 weeks and 4 days. Patient presents today stating she has less vaginal bleeding and no abdominal cramping or back pain. Denies chest pain, shortness of breath, nausea, vomiting, diarrhea, urinary complaints or any other symptoms. Patient has an upcoming appointment scheduled with OB in 2 days. ROS: as above PE: GENERAL: well-appearing, NAD HEAD: NCAT EYES: Pupils equal, round and reactive to light, sclera anicteric, conjunctiva clear ENT: pharynx: no erythema, no exudate, uvula midline NECK: supple CHEST: nontender RESP: clear, no w/r/r CARDIO: rrr, no m/g/r ABD: +BS, soft, nontender, non distended : deferred BACK: no midline spinal ttp, no CVAT EXTREMITIES: Normal range of motion, no edema NEUROLOGICAL: Normal speech, normal gait SKIN: Warm, Dry Is this a multiple visit Asthma Patient?: No <Eileen Strauss - Last Filed: 08/08/20 15:49> <Elva Armstrong - Last Filed: 08/08/20 16:26> - General Chief Complaint: Vaginal Bleeding Stated Complaint: VAGINAL BLEEDING 6 WKS PRG Time Seen by Provider: 08/08/20 12:07 Past History - Medical History Anemia: Yes Asthma: No Cancer: No Cardiac Disorders: No COPD: No Diabetes: No HTN: No Seizures: No Thyroid Disease: No - Surgical History Abdominal Surgery: No - Reproductive History Is Patient Now?: Yes (#): 5 Para: 4 Spontaneous : 0 - Immunization History Immunization Up to Date: Yes - Psycho-Social/Smoking History Smoking Status: No Smoking History: Never smoked Have you smoked in the past 12 months: No Number of Cigarettes Smoked Daily: 0 Information on smoking cessation initiated: No - Substance Abuse Hx (Audit-C & DAST Scrn) How often the patient has a drink containing alcohol: Never Score: In Men: 4 or > Positive; In Women: 3 or > Positive: 0 Screen Result (Pos requires Nsg. Audit-10AR): Negative In the last yr the pt used illegal drug/Rx for NonMed reason: No Score: Yes response is considered Positive: 0 Screen Result (Positive result requires Nsg. DAST-10): Negative <Eileen Strauss - Last Filed: 08/08/20 15:49> <Elva Armstrong - Last Filed: 08/08/20 16:26> - Medical History Allergies/Adverse Reactions: Allergies Allergy/AdvReac Type Severity Reaction Status Date / Time aspirin Allergy Intermediate Swelling Verified 08/08/20 11:34 Home Medications: Ambulatory Orders NK [No Known Home Medication] 08/08/20 *Physical Exam - Vital Signs Last Vital Signs Temp Pulse Resp BP Pulse Ox 99.1 F 86 17 137/62 100 08/08/20 11:15 08/08/20 11:15 08/08/20 11:15 08/08/20 11:15 08/08/20 11:15 <Eileen Strauss - Last Filed: 08/08/20 15:49> - Vital Signs Last Vital Signs Temp Pulse Resp BP Pulse Ox 99.1 F 86 17 137/62 100 08/08/20 11:15 08/08/20 11:15 08/08/20 11:15 08/08/20 11:15 08/08/20 11:15 <Elva Armstrong - Last Filed: 08/08/20 16:26> ED Treatment Course - RADIOLOGY Radiology Studies Ordered: Category Date Time Status TRANSVAGINAL US PREG [US] Stat Ultrasound 08/08/20 12:22 Ordered <Eileen Strauss - Last Filed: 08/08/20 15:49> Medical Decision Making - Medical Decision Making 08/08/20 12:54 35-year-old female approximately 6 weeks gestation presents for repeat beta hCG and transvaginal ultrasound. Patient presented to ED August 01, 2020 for blood upon wiping. At that time beta hcg 3591, returned to ED August 06, 2020 for vaginal bleeding, at that time beta hcg 5211.4 and transvaginal ultrasound resulted in possible early IUP at 5 weeks and 4 days. Patient presents today stating she has less vaginal bleeding and no abdominal cramping or back pain. Denies chest pain, shortness of breath, nausea, vomiting, diarrhea, urinary complaints or any other symptoms. Patient has an upcoming appointment scheduled with OB in 2 days. beta HCG transvaginal US reassess 08/08/20 15:49 [facility] - 1807.3 ( [facility] 5211.4 08/06/20) transvaginal US: Gestational sac which has decreased in size since prior ultrasound, no pole or yolk sac, findings suspicious for a pending / in progress. Discussed these results with patient Patient will follow-up with her OB in 2 days Advised patient to return to ED if heavy vaginal bleeding, passing clots, soaking greater than 1 pad per hour, dizziness, shortness of breath, palpitations or any concerning symptoms <Eileen Strauss - Last Filed: 08/08/20 15:49> - Medical Decision Making The patient was seen and evaluated in conjunction with midlevel provider under my direct supervision, ancillary studies were reviewed. I agree with the plan as outlined with_CLEOPATRA strauss. HPI, workup/dispo as outlined. VS reviewed, wnl. Vital Signs Temp Pulse Resp BP Pulse Ox 99.1 F 86 17 137/62 100 08/08/20 11:15 08/08/20 11:15 08/08/20 11:15 08/08/20 11:15 08/08/20 11:15 beta hcg is downtrending based on ultrasound and clinical presentation, likely miscarriage anticipate discharge, household manager followup in 2 days, return precautions 08/08/20 14:30 08/08/20 16:25 <Elva Armstrong - Last Filed: 08/08/20 16:26> Discharge - Discharge Information Problems reviewed: Yes - Admission No <Eileen Strauss - Last Filed: 08/08/20 15:49> <Elva Armstrong - Last Filed: 08/08/20 16:26> - Discharge Information Clinical Impression/Diagnosis: Vaginal bleeding during Condition: Stable Disposition: HOME - Follow up/Referral Referrals: Saida Restrepo [Primary Care Provider] - - Patient Discharge Instructions Additional Instructions: Keep your appointment scheduled with OB in today for repeat beta hCG and ultrasound Return to ED if heavy vaginal bleeding, shortness of breath, dizziness, palpitations or any concerns - Post Discharge Activity
== END 2020-08-08 16:27 | disposition home or self-care (01) ==
LOC: JER 11:11
DX: O20.9 Hemorrhage in early pregnancy, unspecified (principal); Z3A.00 Weeks of gestation of pregnancy not specified
CPT/HCPCS: 36415; 76817-TC; 84702; 99284-25

== ENCOUNTER 2021-01-24 10:11 | Emergency (ER) | payer OTHER ==
[2021-01-24 10:23] VITALS: BP 122/78; PULSE 78; TEMP 98.1; BMI 38.7
[2021-01-24] MEDS ORDERED: ACETAMINOPHEN 500 MG TABLET (FP) PO ONE (11:07)
[2021-01-24] MEDS ORDERED: ACETAMINOPHEN 500 MG TABLET (FP) ONE (11:09)
== END 2021-01-24 12:16 | disposition home or self-care (01) ==
LOC: JERFT 10:11
DX: S93.602A Unspecified sprain of left foot, initial encounter (principal)
CPT/HCPCS: 73630-TC-LT; 99284-25

== ENCOUNTER 2021-06-06 01:50 | Emergency (ER) | payer OTHER ==
[2021-06-06 02:12] VITALS: PULSE 80; TEMP 98.1; BMI 42.0
[2021-06-06] MEDS ORDERED: ACETAMINOPHEN 1000 MG/100 ML VIAL (NON FORMULARY) IVPB ONE (02:53)
[2021-06-06] MEDS ORDERED: SODIUM CHLORIDE 0.9% 500 ML INFUS.BAG IV ONE (02:53)
[2021-06-06] MEDS ORDERED: METOCLOPRAMIDE HCL INJECTION 10 MG/2 ML VIAL IVPB ONE (02:53)
[2021-06-06] MEDS ORDERED: ACETAMINOPHEN INJECTION 100 ML IVPB ONE (03:03)
[2021-06-06] MEDS ORDERED: METOCLOPRAMIDE HCL INJECTION 10 MG/2 ML VIAL ONE (03:03)
[2021-06-06 04:34] VITALS: BP 121/82
== END 2021-06-06 04:35 | disposition home or self-care (01) ==
LOC: JER 01:50
PROC: 3E033NZ Introduction of Analgesics, Hypnotics, Sedatives into Peripheral Vein, Percutaneous Approach (ICD-10-PCS; principal; 2021-06-06)
PROC: 3E033GC Introduction of Other Therapeutic Substance into Peripheral Vein, Percutaneous Approach (ICD-10-PCS; 2021-06-06)
DX: R51.9 Headache, unspecified (principal)
CPT/HCPCS: 99284-25; J0131

== ENCOUNTER 2021-06-24 10:38 | Emergency (ER) | payer OTHER ==
[2021-06-24 10:48] VITALS: BMI 38.7
[2021-06-24 11:46] VITALS: BP 124/61; PULSE 91; TEMP 98.2
[2021-06-24 12:58] LABS: EPI CELLS >36 /uL (0-25.1); HYALINE CASTS 2 /uL (0-3.1); PH,URINE 7.5 (5.0-8.0); URINE APPEARANCE CLOUDY; URINE BACTERIA 987 /uL (0-1359); URINE BILIRUBIN NEGATIVE (NEGATIVE); URINE COLOR YELLOW; URINE GLUCOSE (UA) NEGATIVE (NEGATIVE); URINE KETONE NEGATIVE (NEGATIVE); URINE LEUK ESTERASE 1+ (NEGATIVE); URINE NITRITE NEGATIVE (NEGATIVE); URINE PROTEIN NEGATIVE (NEGATIVE); URINE RBC 20 /uL (0-23.9); URINE WBC 42 /uL (0-25.8)
== END 2021-06-24 16:05 | disposition home or self-care (01) ==
LOC: JER 10:38
DX: O20.8 Other hemorrhage in early pregnancy (principal); Z3A.20 20 weeks gestation of pregnancy
CPT/HCPCS: 76801-TC; 76817-TC; 81003; 99284-25

== ENCOUNTER 2021-06-26 09:12 | Emergency (ER) | payer OTHER ==
[2021-06-26 09:18] VITALS: TEMP 98.4; BMI 38.7
[2021-06-26 10:34] VITALS: BP 127/79; PULSE 84
[2021-06-26 12:28] LABS: BASO % 0.3 % (0-2.0); EOS % 1.8 % (0-4.5); HEMATOCRIT 35.7 % (32.4-45.2); HEMOGLOBIN 12.1 GM/dL (10.7-15.3); LYMPH % 15.8 % (8-40); MEAN CELL VOLUME 85.3 fl (80-96); MEAN PLT VOLUME 9.5 fl (7.5-11.1); MONO % 3.6 % (3.8-10.2); NEUT % 78.5 % (42.8-82.8); PLATELET COUNT 217 10^3/uL (134-434); RBC 4.18 M/mm3 (3.60-5.2); RDW 14.3 % (11.6-15.6); WHITE BLOOD COUNT 13.5 K/mm3 (4.0-10.0)
== END 2021-06-26 15:01 | disposition home or self-care (01) ==
LOC: JER 09:12
DX: O26.852 Spotting complicating pregnancy, second trimester (principal); Z3A.26 26 weeks gestation of pregnancy
CPT/HCPCS: 36415; 76815; 76817-TC; 85025; 87491; 87591; 99285-25

== ENCOUNTER 2021-06-30 12:24 | Inpatient (IN) | payer OTHER ==
[2021-06-30] MEDS ORDERED: AMPICILLIN - 2 GM in SODIUM CHLORIDE 100 ML IVPB ONE (13:13)
[2021-06-30] MEDS ORDERED: MAGNESIUM 4GM/H20 - 4 GM/100 ML IVPB IVPB SCH (13:15)
[2021-06-30] MEDS ORDERED: MAGNESIUM SULFATE 20GM/500ML - 20 GM/500 ML INFUS.BAG ONE (13:17)
[2021-06-30] MEDS ORDERED: AMPICILLIN SODIUM 2 GM VIAL ONE (13:18)
[2021-06-30 14:13] VITALS: BMI 39.5
[2021-06-30 14:26] LABS: HEMATOCRIT 36.7 % (32.4-45.2); HEMOGLOBIN 12.3 GM/dL (10.7-15.3); MCH 28.8 pg (25.7-33.7); MCHC 33.5 g/dl (32.0-36.0); MEAN CELL VOLUME 86.1 fl (80-96); MEAN PLT VOLUME 9.3 fl (7.5-11.1); PLATELET COUNT 217 10^3/uL (134-434); RBC 4.26 M/mm3 (3.60-5.2); RDW 14.3 % (11.6-15.6); WHITE BLOOD COUNT 15.8 K/mm3 (4.0-10.0)
[2021-06-30 14:36] LABS: CALCIUM 8.5 mg/dL (8.5-10.1); INR 0.99 (0.83-1.09)
[2021-06-30 14:37] LABS: BLOOD UREA NITROGEN 5.6 mg/dL (7-18)
[2021-06-30 14:39] LABS: ACTIVATED PTT 28.5 SECONDS (25.2-36.5)
[2021-06-30 14:40] LABS: CREATININE 0.6 mg/dL (0.55-1.3)
[2021-06-30] MEDS ORDERED: OXYTOCIN 20 UNITS in 0.9% NS 20 UNIT/1,000 ML INFUS.BAG IV ONE ×2 (14:44→18:13)
[2021-06-30] MEDS ORDERED: MISOPROSTOL 200 MCG TABLET ONE (14:48)
[2021-06-30] MEDS ORDERED: MORPHINE SULFATE 2 MG/ML VIAL ONE (15:04)
[2021-06-30] MEDS ORDERED: BISACODYL 10 MG SUPP.RECT RC PRN (15:26)
[2021-06-30] MEDS ORDERED: ACETAMINOPHEN 325 MG TABLET (FP) PO PRN (15:26)
[2021-06-30] MEDS ORDERED: BENZOCAINE 28 GM HEMORRHOIDAL OINTMENT TP PRN (15:26)
[2021-06-30] MEDS ORDERED: WITCH HAZEL 50% (TUCKS) 40 PAD/JAR PAD TP PRN (15:26)
[2021-06-30] MEDS ORDERED: BENZOCAINE 20% 57 GM BOTTLE TP PRN (15:26)
[2021-06-30] MEDS ORDERED: MISOPROSTOL 100 MCG TABLET PV ONE (15:28)
[2021-06-30] MEDS ORDERED: OXYTOCIN 20 UNITS in 0.9% NS 20 UNIT/1,000 ML INFUS.BAG IV SCH (15:30)
[2021-06-30 15:51] LABS: ANISOCYTOSIS 0; MACROCYTOSIS 0; PLATELET ESTIMATE NORMAL
[2021-06-30] MEDS ORDERED: IBUPROFEN 600 MG TABLET (FP) PO ONE (16:12)
[2021-06-30] MEDS ORDERED: ACETAMINOPHEN 325 MG TABLET (FP) ONE (16:12)
[2021-06-30] MEDS: IBUPROFEN 600 MG TABLET (FP) PO PRN ×2 (16:15→21:18)
[2021-06-30] MEDS ORDERED: ELECTROLYTE-148 SOLN 1,000 ML IV SCH (19:00)
[2021-06-30] MEDS ORDERED: MORPHINE SULFATE 2 MG/ML VIAL IVPUSH ONE (19:00)
[2021-06-30 21:09] LABS: BASO % 0.2 % (0-2.0); EOS % 0.3 % (0-4.5); HEMATOCRIT 28.1 % (32.4-45.2); HEMOGLOBIN 9.5 GM/dL (10.7-15.3); LYMPH % 8.7 % (8-40); MCHC 33.8 g/dl (32.0-36.0); MEAN CELL VOLUME 85.9 fl (80-96); MEAN PLT VOLUME 8.8 fl (7.5-11.1); MONO % 3.6 % (3.8-10.2); NEUT % 87.2 % (42.8-82.8); PLATELET COUNT 170 10^3/uL (134-434); RBC 3.27 M/mm3 (3.60-5.2); WHITE BLOOD COUNT 14.4 K/mm3 (4.0-10.0)
[2021-07-01 09:08] LABS: BASO % 0.4 % (0-2.0); EOS % 1.5 % (0-4.5); HEMATOCRIT 32.8 % (32.4-45.2); HEMOGLOBIN 11.1 GM/dL (10.7-15.3); LYMPH % 12.6 % (8-40); MCH 28.8 pg (25.7-33.7); MCHC 33.7 g/dl (32.0-36.0); MEAN CELL VOLUME 85.4 fl (80-96); MEAN PLT VOLUME 9.5 fl (7.5-11.1); MONO % 4.1 % (3.8-10.2); NEUT % 81.4 % (42.8-82.8); PLATELET COUNT 205 10^3/uL (134-434); RBC 3.84 M/mm3 (3.60-5.2); RDW 14.5 % (11.6-15.6); WHITE BLOOD COUNT 12.4 K/mm3 (4.0-10.0)
[2021-07-01 10:29] VITALS: BP 122/70; PULSE 91; TEMP 98.4
[2021-07-01] MEDS ORDERED: SENNOSIDES/DOCUSATE COMBO (SENNA PLUS) TABLET (UD) PO PRN (22:00)
== END 2021-07-01 13:00 | disposition home or self-care (01) | DRG 560 ==
LOC: JLDR 12:24 → J3W 20:06
PROVIDERS: ADMIT Student in an Organized Health Care Education/Training Program; ATTEND Student in an Organized Health Care Education/Training Program
PROC: 10E0XZZ Delivery of Products of Conception, External Approach (ICD-10-PCS; principal; 2021-06-30)
DX: O60.12X0 Preterm labor second trimester with preterm delivery second trimester, not applicable or unspecified (principal); Z37.1 Single stillbirth; O99.214 Obesity complicating childbirth; E66.9 Obesity, unspecified; Z3A.21 21 weeks gestation of pregnancy
CPT/HCPCS: 36415; 59409; 80048; 85025; 85610; 85730; 86780; 86850; 86900; 86901; C9803; U0003; U0005

== ENCOUNTER 2024-01-20 13:44 | Emergency (ER) | payer OTHER ==
[2024-01-20 13:53] VITALS: TEMP 98.7; BMI 40.0
[2024-01-20] MEDS ORDERED: ACETAMINOPHEN INJECTION 100 ML IVPB ONE (15:19)
[2024-01-20] MEDS ORDERED: ONDANSETRON 4 MG/2 ML VIAL ONE (15:19)
[2024-01-20 15:36] LABS: EPI CELLS >36 /uL (0-25.1); HYALINE CASTS 1 /uL (0-3.1); URINE APPEARANCE CLEAR; URINE BACTERIA 1120 /uL (0-1359); URINE BILIRUBIN NEGATIVE (NEGATIVE); URINE COLOR YELLOW; URINE GLUCOSE (UA) NEGATIVE (NEGATIVE); URINE KETONE TRACE (NEGATIVE); URINE LEUK ESTERASE TRACE (NEGATIVE); URINE NITRITE NEGATIVE (NEGATIVE); URINE PROTEIN 1+ (NEGATIVE); URINE RBC 39 /uL (0-23.9); URINE WBC 45 /uL (0-25.8)
[2024-01-20] MEDS: LACTATED RINGERS SOLUTION 1,000 ML/1,000 ML INFUS.BAG IV STA ×2 (15:36→17:18)
[2024-01-20] MEDS: ACETAMINOPHEN 1000 MG/100 ML BAG IVPB ONE (15:36)
[2024-01-20 15:37] LABS: HCG,QUALITATIVE URINE Negative
[2024-01-20] MEDS: ONDANSETRON 4 MG/2 ML VIAL IVPUSH ONE (15:37)
[2024-01-20 15:40] LABS: BASO % 0.6 % (0-2.0); EOS % 1.4 % (0-4.5); HEMATOCRIT 40.4 % (32.4-45.2); HEMOGLOBIN 13.2 GM/dL (10.7-15.3); LYMPH % 49.9 % (8-40); MCH 27.5 pg (25.7-33.7); MCHC 32.8 g/dl (32.0-36.0); MEAN CELL VOLUME 83.9 fl (80-96); MEAN PLT VOLUME 8.6 fl (7.5-11.1); MONO % 10.3 % (3.8-10.2); NEUT % 37.8 % (42.8-82.8); PLATELET COUNT 288 10^3/uL (134-434); RBC 4.81 M/mm3 (3.60-5.2); WHITE BLOOD COUNT 4.5 K/mm3 (4.0-10.0)
[2024-01-20 16:26] LABS: POTASSIUM 3.5 mmol/L (3.5-5.1)
[2024-01-20 16:30] LABS: ALBUMIN 3.4 g/dl (3.4-5.0); BLOOD UREA NITROGEN 8.4 mg/dL (7-18)
[2024-01-20 16:33] LABS: CREATININE 0.7 mg/dL (0.55-1.3)
[2024-01-20 16:34] LABS: BILIRUBIN,TOTAL 0.2 mg/dL (0.2-1); TOT PROT 7.8 g/dl (6.4-8.2)
[2024-01-20 18:04] VITALS: BP 130/71; PULSE 74; RESP 15
== END 2024-01-20 18:05 | disposition home or self-care (01) ==
LOC: JER 13:44
PROC: 3E033NZ Introduction of Analgesics, Hypnotics, Sedatives into Peripheral Vein, Percutaneous Approach (ICD-10-PCS; principal; 2024-01-20)
PROC: 3E033GC Introduction of Other Therapeutic Substance into Peripheral Vein, Percutaneous Approach (ICD-10-PCS; 2024-01-20)
PROC: 3E0337Z Introduction of Electrolytic and Water Balance Substance into Peripheral Vein, Percutaneous Approach (ICD-10-PCS; 2024-01-20)
DX: R11.2 Nausea with vomiting, unspecified (principal); R19.7 Diarrhea, unspecified; A08.4 Viral intestinal infection, unspecified; R53.81 Other malaise; Z20.822 Contact with and (suspected) exposure to COVID-19
CPT/HCPCS: 0241U-QW; 36415; 80053; 81003; 84703; 85025; 87086; 99284-25; J0131